=== PATIENT | male | born 1960 | race Caucasian/White ===

== ENCOUNTER 2019-07-13 11:37 | Inpatient (IN) ==
[2019-07-13 12:08] LABS: Basophils # 0.1 K/mcL (0.0-0.2); Basophils % 0.7 %; Eosinophils # 0.2 K/mcL (0.0-0.6); Eosinophils % 2.3 %; Hemoglobin 14.2 g/dL (12.9-16.9); Immature Granulocytes % 0.2 % (0-4); Lymphocytes # 1.5 K/mcL (0.6-4.6); Lymphocytes % 18.9 %; Mean Corpuscular Hemoglobin 31.3 pg (28.0-33.3); Mean Corpuscular Volume 94.7 fL (83.0-100.0); Mean Platelet Volume 10.4 fL (9.4-12.4); Monocytes # 0.6 K/mcL (0.0-1.3); Monocytes % 7.5 %; Neutrophils # 5.7 K/mcL (1.6-8.9); Platelet Count 214 K/mcL (140-400); Red Blood Count 4.54 M/mcL (4.19-5.50); Red Cell Distribution Width 13.8 % (11.5-14.5); Segmented Neutrophils % 70.4 %; White Blood Count 8.2 K/mcL (4.3-11.1)
[2019-07-13 12:27] LABS: BUN/Creatinine Ratio 16 (6-26); Blood Urea Nitrogen 17 mg/dL (8-23); Calcium 9.2 mg/dL (8.6-10.3); Carbon Dioxide 23 mEq/L (23-29); Chloride 110 mEq/L (98-107); Glucose 124 mg/dL (70-105); Osmolality,Calculated 295 (280-300); Potassium 4.2 mEq/L (3.5-5.1); Sodium 141 mEq/L (136-145); Troponin I < 0.03 ng/mL (< 0.04); eGFR For African Americans > 60 (> 60); eGFR For Non-African Americans > 60 (> 60)
[2019-07-13] MEDS ORDERED: Isovue-370 500 ML BOTTLE IVP ONE (12:53)
[2019-07-13] MEDS ORDERED: *HR* Metoprolol 5 MG/5 ML VIAL IVP STA (13:36)
[2019-07-13] MEDS ORDERED: Furosemide 20 MG/2 ML VIAL IVP ONE (13:37)
[2019-07-13] MEDS ORDERED: *HR* Promethazine 25 MG/ML VIAL IVP PRN (14:37)
[2019-07-13] MEDS ORDERED: Naloxone 0.4 MG/ML INJ IVP PRN (14:37)
[2019-07-13] MEDS ORDERED: Ondansetron ODT 4 MG TAB.RAPDIS SL PRN (14:37)
[2019-07-13] MEDS ORDERED: *HR* LORazepam 2 MG/ML VIAL IVP PRN (15:25)
[2019-07-13] MEDS ORDERED: *HR* Heparin 5,000 UNIT/ML VIAL IVP PRN ×2 (17:59)
[2019-07-13] MEDS ORDERED: *HR* Heparin 5,000 UNIT/ML VIAL IVP ONE (17:59)
[2019-07-13] MEDS ORDERED: Heparin 25,000 UNIT/250 ML D5W 25,000 UNIT/250 ML IV.SOLN IVC SCH (18:00)
[2019-07-13 18:32] LABS: Hematocrit 40.2 % (37.5-50.1); Hemoglobin 13.3 g/dL (12.9-16.9); Mean Corpuscular HGB Conc 33.1 g/dL (31.6-35.5); Mean Corpuscular Hemoglobin 31.1 pg (28.0-33.3); Mean Corpuscular Volume 93.9 fL (83.0-100.0); Mean Platelet Volume 10.1 fL (9.4-12.4); Platelet Count 204 K/mcL (140-400); Red Blood Count 4.28 M/mcL (4.19-5.50); Red Cell Distribution Width 13.8 % (11.5-14.5); White Blood Count 9.6 K/mcL (4.3-11.1)
[2019-07-13 18:46] LABS: Heparin anti-factor XA UFH 0.01 IU/mL (0.30-0.70); INR 1.2; Prothrombin Time 13.4 Seconds (9.4-12.1)
[2019-07-13] MEDS: Metoprolol 100 MG TABLET PO SCH ×2 (20:31→20:50)
[2019-07-13] MEDS: DilTIAZem 50 MG in 0.9 % Sodium Chloride 40 ML IVC SCH (20:55)
[2019-07-13] MEDS ORDERED: traZODone 50 MG TABLET PO SCH (21:00)
[2019-07-14] MEDS: DilTIAZem 50 MG in 0.9 % Sodium Chloride 40 ML IVC SCH (00:56)
[2019-07-14 02:05] LABS: Basophils # 0.1 K/mcL (0.0-0.2); Eosinophils # 0.3 K/mcL (0.0-0.6); Eosinophils % 2.8 %; Hematocrit 42.3 % (37.5-50.1); Hemoglobin 13.6 g/dL (12.9-16.9); Immature Granulocytes % 0.2 % (0-4); Lymphocytes # 2.3 K/mcL (0.6-4.6); Lymphocytes % 26.2 %; Mean Corpuscular HGB Conc 32.2 g/dL (31.6-35.5); Mean Corpuscular Hemoglobin 30.8 pg (28.0-33.3); Mean Corpuscular Volume 95.7 fL (83.0-100.0); Mean Platelet Volume 10.7 fL (9.4-12.4); Monocytes # 0.9 K/mcL (0.0-1.3); Neutrophils # 5.3 K/mcL (1.6-8.9); Platelet Count 225 K/mcL (140-400); Red Blood Count 4.42 M/mcL (4.19-5.50); Red Cell Distribution Width 13.8 % (11.5-14.5); Segmented Neutrophils % 59.8 %; White Blood Count 8.9 K/mcL (4.3-11.1)
[2019-07-14 02:28] LABS: BUN/Creatinine Ratio 15 (6-26); Blood Urea Nitrogen 17 mg/dL (8-23); Calcium 9.3 mg/dL (8.6-10.3); Carbon Dioxide 25 mEq/L (23-29); Chloride 109 mEq/L (98-107); Chol/HDL Ratio 3.9 (0-4.9); Glucose 107 mg/dL (70-105); Osmolality,Calculated 296 (280-300); Potassium 3.9 mEq/L (3.5-5.1); Sodium 142 mEq/L (136-145); eGFR For African Americans > 60 (> 60); eGFR For Non-African Americans > 60 (> 60)
[2019-07-14 02:34] LABS: Thyroid Stimulating Hormone 2.9 mcIU/mL (0.340-5.600)
[2019-07-14 09:08] LABS: Estimated Average Glucose 126 mg/dl
[2019-07-14] MEDS: Aspirin Enteric Coated 81 MG Tablet PO SCH (09:53)
[2019-07-14] MEDS: Metoprolol 100 MG TABLET PO SCH (09:54)
[2019-07-14] MEDS ORDERED: *HR* Rivaroxaban 10 MG TABLET PO SCH (10:00)
[2019-07-14] MEDS ORDERED: Furosemide 40 MG/4 ML VIAL IVP ONE (14:10)
[2019-07-14] MEDS: Metoprolol XL (24 HR) Succ 50 MG TAB.ER.24H PO SCH ×2 (14:45→20:24)
[2019-07-15] MEDS ORDERED: Regadenoson 0.4 MG/5 ML SYRINGE IVP ONE (06:04)
[2019-07-15 06:38] LABS: BUN/Creatinine Ratio 18 (6-26); Blood Urea Nitrogen 19 mg/dL (8-23); Calcium 9.2 mg/dL (8.6-10.3); Carbon Dioxide 27 mEq/L (23-29); Chloride 105 mEq/L (98-107); Glucose 107 mg/dL (70-105); Osmolality,Calculated 299 (280-300); Potassium 3.6 mEq/L (3.5-5.1); Sodium 143 mEq/L (136-145); eGFR For African Americans > 60 (> 60); eGFR For Non-African Americans > 60 (> 60)
[2019-07-15] MEDS ORDERED: Metoprolol XL (24 HR) Succ 50 MG TAB.ER.24H PO SCH (09:00)
[2019-07-15] MEDS ORDERED: Furosemide 40 MG TABLET PO SCH (09:00)
[2019-07-15] MEDS: Aspirin Enteric Coated 81 MG Tablet PO SCH (09:49)
[2019-07-15] MEDS: Metoprolol XL (24 HR) Succ 50 MG TAB.ER.24H PO SCH ×3 (09:49→22:10)
[2019-07-15] MEDS: Furosemide 40 MG/4 ML VIAL IVP SCH ×2 (09:49→17:53)
[2019-07-15] MEDS: Apixaban 5 MG TABLET PO SCH ×2 (09:49→22:10)
[2019-07-15 11:20] LABS: Magnesium 1.8 mg/dL (1.6-2.6)
[2019-07-16] MEDS: Aspirin Enteric Coated 81 MG Tablet PO SCH (10:18)
[2019-07-16] MEDS: Metoprolol XL (24 HR) Succ 50 MG TAB.ER.24H PO SCH ×3 (10:51→22:05)
[2019-07-16] MEDS: Furosemide 40 MG/4 ML VIAL IVP SCH (10:51)
[2019-07-16 11:41] LABS: BUN/Creatinine Ratio 19 (6-26); Blood Urea Nitrogen 23 mg/dL (8-23); Calcium 9.3 mg/dL (8.6-10.3); Carbon Dioxide 26 mEq/L (23-29); Chloride 104 mEq/L (98-107); Glucose 111 mg/dL (70-105); Osmolality,Calculated 294 (280-300); Potassium 3.8 mEq/L (3.5-5.1); Sodium 140 mEq/L (136-145); eGFR For African Americans > 60 (> 60); eGFR For Non-African Americans > 60 (> 60)
[2019-07-16] MEDS ORDERED: Apixaban 5 MG TABLET PO ONE (11:45)
[2019-07-16] MEDS ORDERED: *HR* Digoxin 0.5 MG/2 ML AMPUL IVP ONE (13:00)
[2019-07-16] MEDS: *HR* Digoxin 0.5 MG/2 ML AMPUL IVP SCH (20:39)
[2019-07-17] MEDS: *HR* Digoxin 0.5 MG/2 ML AMPUL IVP SCH ×3 (01:23→13:03)
[2019-07-17] MEDS: Aspirin Enteric Coated 81 MG Tablet PO SCH (08:24)
[2019-07-17] MEDS: Metoprolol XL (24 HR) Succ 50 MG TAB.ER.24H PO SCH ×2 (08:25→21:43)
[2019-07-17] MEDS: *HR* Enoxaparin 150 MG/ML SYRINGE SQ SCH ×2 (11:39→17:22)
[2019-07-17] MEDS ORDERED: cefTRIAXone 2,000 MG in Water for inj. (sterile) 20 ML IVP ONE (14:17)
[2019-07-17] MEDS: Furosemide 40 MG TABLET PO SCH (15:30)
[2019-07-18 06:02] LABS: BUN/Creatinine Ratio 18 (6-26); Blood Urea Nitrogen 19 mg/dL (8-23); Calcium 9.1 mg/dL (8.6-10.3); Carbon Dioxide 26 mEq/L (23-29); Chloride 105 mEq/L (98-107); Glucose 96 mg/dL (70-105); Osmolality,Calculated 294 (280-300); Sodium 141 mEq/L (136-145); eGFR For African Americans > 60 (> 60); eGFR For Non-African Americans > 60 (> 60)
[2019-07-18] MEDS ORDERED: *HR* Digoxin 0.25 MG TABLET PO SCH (09:00)
[2019-07-18] MEDS: Metoprolol XL (24 HR) Succ 50 MG TAB.ER.24H PO SCH (09:40)
[2019-07-18] MEDS: Aspirin Enteric Coated 81 MG Tablet PO SCH (09:41)
[2019-07-18] MEDS: Furosemide 40 MG TABLET PO SCH (10:41)
[2019-07-18] MEDS ORDERED: 0.9 % Sodium Chloride 1,000 ML ONE ×2 (13:30→13:47)
[2019-07-18] MEDS ORDERED: Heparin 1,000 UNITS/500 mL 500 ML ONE (13:30)
[2019-07-18] MEDS ORDERED: *HR* Heparin 10,000 UNIT/10 ML VIAL ONE (13:31)
[2019-07-18] MEDS ORDERED: Nitroglycerin 1,000 MCG/10 ML VIAL IV ONE (13:31)
[2019-07-18] MEDS ORDERED: Iopamidol 125 ML INFUS..BTL ONE (13:31)
[2019-07-18] MEDS ORDERED: *HR* Midazolam HCl 2 MG/2 ML VIAL ONE (13:46)
[2019-07-18] MEDS ORDERED: *HR* FentaNYL (PF) 100 MCG/2 ML VIAL ONE (13:47)
[2019-07-18] MEDS ORDERED: Verapamil 5 MG/2 ML VIAL ONE (13:55)
[2019-07-18 18:33] VITALS: BP 108/87
== END 2019-07-18 19:09 | disposition home or self-care (01) | DRG 286 ==
LOC: 2NENU 11:37 → EMEROOARM 11:37 → SUATTDRO 14:04 → 2NENU 14:55
PROVIDERS: ADMIT Internal Medicine; ATTEND Internal Medicine

== ENCOUNTER 2020-03-11 10:43 | Observation (INO) ==
[2020-03-11 11:15] LABS: Basophils # 0.1 K/mcL (0.0-0.2); Eosinophils # 0.3 K/mcL (0.0-0.6); Eosinophils % 3.2 %; Hematocrit 46.8 % (37.5-50.1); Hemoglobin 15.5 g/dL (12.9-16.9); Immature Granulocytes % 0.4 % (0-4); Lymphocytes # 2.5 K/mcL (0.6-4.6); Lymphocytes % 27.6 %; Mean Corpuscular HGB Conc 33.1 g/dL (31.6-35.5); Mean Corpuscular Hemoglobin 31.4 pg (28.0-33.3); Mean Corpuscular Volume 94.7 fL (83.0-100.0); Mean Platelet Volume 10.1 fL (9.4-12.4); Monocytes # 0.9 K/mcL (0.0-1.3); Monocytes % 9.8 %; Neutrophils # 5.3 K/mcL (1.6-8.9); Platelet Count 237 K/mcL (140-400); Red Blood Count 4.94 M/mcL (4.19-5.50); Red Cell Distribution Width 13.7 % (11.5-14.5); White Blood Count 9.1 K/mcL (4.3-11.1)
[2020-03-11 11:21] LABS: INR 1.2; Prothrombin Time 13.3 Seconds (9.4-12.1)
[2020-03-11 11:23] LABS: Activated Partial Thrombo Time 33.9 Seconds (26.0-36.0)
[2020-03-11 11:37] LABS: BUN/Creatinine Ratio 18 (6-26); Blood Urea Nitrogen 25 mg/dL (8-23); Calcium 9.5 mg/dL (8.6-10.3); Carbon Dioxide 26 mEq/L (23-29); Chloride 107 mEq/L (98-107); Glucose 120 mg/dL (70-105); Osmolality,Calculated 298 (280-300); Sodium 141 mEq/L (136-145); eGFR For African Americans > 60 (> 60); eGFR For Non-African Americans 53 (> 60)
[2020-03-11 11:39] LABS: Troponin I < 0.03 ng/mL (< 0.04)
[2020-03-11] MEDS ORDERED: Amiodarone Premix 150 MG/100 ML BAG IVPB ONE (11:41)
[2020-03-11] MEDS ORDERED: Naloxone 0.4 MG/ML INJ IVP PRN (12:04)
[2020-03-11] MEDS ORDERED: Ondansetron 4 MG/2 ML VIAL IVP PRN (12:04)
[2020-03-11] MEDS ORDERED: Amiodarone Premix 360 MG/200 ML BAG IVC ONE (12:07)
[2020-03-11] MEDS: *HR* Amiodarone 200 MG TABLET PO SCH (12:25)
[2020-03-11] MEDS: Amiodarone Premix 360 MG/200 ML BAG IVC SCH ×2 (16:00→18:46)
[2020-03-11] MEDS: Apixaban 5 MG TABLET PO SCH (20:06)
[2020-03-12 04:47] LABS: Basophils # 0.1 K/mcL (0.0-0.2); Basophils % 1.1 %; Eosinophils # 0.3 K/mcL (0.0-0.6); Eosinophils % 3.8 %; Hematocrit 43.1 % (37.5-50.1); Hemoglobin 14.1 g/dL (12.9-16.9); Immature Granulocytes % 0.2 % (0-4); Lymphocytes # 2.8 K/mcL (0.6-4.6); Lymphocytes % 34.8 %; Mean Corpuscular HGB Conc 32.7 g/dL (31.6-35.5); Mean Corpuscular Hemoglobin 31.1 pg (28.0-33.3); Mean Corpuscular Volume 95.1 fL (83.0-100.0); Mean Platelet Volume 10.1 fL (9.4-12.4); Monocytes # 0.7 K/mcL (0.0-1.3); Monocytes % 8.4 %; Neutrophils # 4.2 K/mcL (1.6-8.9); Platelet Count 195 K/mcL (140-400); Red Blood Count 4.53 M/mcL (4.19-5.50); Red Cell Distribution Width 13.8 % (11.5-14.5); Segmented Neutrophils % 51.7 %; White Blood Count 8.1 K/mcL (4.3-11.1)
[2020-03-12 05:11] LABS: BUN/Creatinine Ratio 19 (6-26); Blood Urea Nitrogen 24 mg/dL (8-23); Calcium 9.1 mg/dL (8.6-10.3); Carbon Dioxide 27 mEq/L (23-29); Chloride 105 mEq/L (98-107); Glucose 116 mg/dL (70-105); Osmolality,Calculated 295 (280-300); Phosphorous 3.6 mg/dL (2.7-4.5); Potassium 3.8 mEq/L (3.5-5.1); Sodium 140 mEq/L (136-145); eGFR For African Americans > 60 (> 60); eGFR For Non-African Americans 57 (> 60)
[2020-03-12] MEDS: Amiodarone Premix 360 MG/200 ML BAG IVC SCH (07:03)
[2020-03-12] MEDS: *HR* Amiodarone 200 MG TABLET PO SCH (08:13)
[2020-03-12] MEDS: Apixaban 5 MG TABLET PO SCH (08:15)
[2020-03-12] MEDS ORDERED: Cholecalciferol (D-3) 1,000 UNIT (25MCG) TABLET PO SCH (09:00)
[2020-03-12] MEDS ORDERED: Lactobacillus 1 EACH CAP.SPRINK PO SCH (09:00)
[2020-03-12] MEDS ORDERED: Furosemide 40 MG TABLET PO SCH (09:00)
[2020-03-12] MEDS ORDERED: Metoprolol XL (24 HR) Succ 50 MG TAB.ER.24H PO SCH (09:00)
[2020-03-12 15:11] VITALS: BP 111/90
[2020-03-12] MEDS ORDERED: *HR* Amiodarone 200 MG TABLET PO SCH ×2 (21:00)
[2020-03-20] MEDS ORDERED: *HR* Amiodarone 200 MG TABLET PO SCH (09:00)
== END 2020-03-12 16:05 | disposition home or self-care (01) ==
LOC: EMEROOARM 10:43 → 3NENU 10:43 → SUATTDRO 14:03 → 3NENU 15:40
PROVIDERS: ADMIT Student in an Organized Health Care Education/Training Program; ATTEND Student in an Organized Health Care Education/Training Program

== ENCOUNTER 2021-05-26 15:47 | Observation (INO) ==
[2021-05-26 16:56] LABS: Basophils # 0.1 K/mcL (0.0-0.2); Eosinophils # 0.2 K/mcL (0.0-0.6); Eosinophils % 2.1 %; Hemoglobin 14.4 g/dL (12.9-16.9); Immature Granulocytes % 0.2 % (0-4); Lymphocytes # 2.1 K/mcL (0.6-4.6); Lymphocytes % 22.8 %; Mean Corpuscular HGB Conc 33.5 g/dL (31.6-35.5); Mean Corpuscular Volume 95.6 fL (83.0-100.0); Mean Platelet Volume 10.2 fL (9.4-12.4); Monocytes # 0.9 K/mcL (0.0-1.3); Monocytes % 9.3 %; Neutrophils # 5.9 K/mcL (1.6-8.9); Platelet Count 195 K/mcL (140-400); Red Cell Distribution Width 13.6 % (11.5-14.5); Segmented Neutrophils % 64.6 %; White Blood Count 9.2 K/mcL (4.3-11.1)
[2021-05-26 17:03] LABS: INR 1.3; Prothrombin Time 14.7 Seconds (9.4-12.1)
[2021-05-26 17:21] LABS: Activated Partial Thrombo Time 32.3 Seconds (26.0-36.0)
[2021-05-26 17:25] LABS: BUN/Creatinine Ratio 18 (6-26); Blood Urea Nitrogen 19 mg/dL (8-23); Calcium 9.1 mg/dL (8.6-10.3); Carbon Dioxide 24 mEq/L (23-29); Chloride 110 mEq/L (98-107); Glucose 124 mg/dL (70-105); Osmolality,Calculated 298 (280-300); Potassium 3.8 mEq/L (3.5-5.1); Sodium 142 mEq/L (136-145); Troponin I < 0.03 ng/mL (< 0.04); eGFR For African Americans > 60 (> 60); eGFR For Non-African Americans > 60 (> 60)
[2021-05-26 17:49] LABS: Thyroid Stimulating Hormone 3.717 mcIU/mL (0.340-5.600)
[2021-05-26] MEDS ORDERED: *HR* Metoprolol 5 MG/5 ML VIAL IVP ONE (17:50)
[2021-05-26] MEDS ORDERED: Apixaban 5 MG TABLET PO ONE (19:51)
[2021-05-26] MEDS ORDERED: Naloxone 0.4 MG/ML INJ IVP PRN (19:55)
[2021-05-26] MEDS ORDERED: Furosemide 20 MG/2 ML VIAL IVP ONE (19:55)
[2021-05-26] MEDS ORDERED: Melatonin 3 MG TABLET PO PRN (19:55)
[2021-05-27] MEDS ORDERED: Furosemide 20 MG TABLET PO SCH (09:00)
[2021-05-27] MEDS ORDERED: Apixaban 5 MG TABLET PO SCH (09:00)
[2021-05-27] MEDS ORDERED: Metoprolol XL (24 HR) Succ 50 MG TAB.ER.24H PO SCH ×2 (09:00→18:00)
[2021-05-27] MEDS ORDERED: Cholecalciferol (D-3) 1,000 UNIT (25MCG) TABLET PO SCH (09:00)
[2021-05-27 11:44] VITALS: BP 113/95
== END 2021-05-27 12:50 | disposition home or self-care (01) ==
LOC: CDU 15:47 → EMEROOARM 15:47 → CDU 20:33
PROVIDERS: ADMIT Internal Medicine; ATTEND Internal Medicine

== ENCOUNTER 2021-09-16 13:00 | Inpatient (IN) ==
[2021-09-16 14:31] LABS: Basophils # 0.1 K/mcL (0.0-0.2); Eosinophils # 0.2 K/mcL (0.0-0.6); Eosinophils % 2.8 %; Hematocrit 48.5 % (37.5-50.1); Immature Granulocytes % 0.2 % (0-4); Lymphocytes % 24.1 %; Mean Corpuscular Hemoglobin 31.7 pg (28.0-33.3); Mean Platelet Volume 9.8 fL (9.4-12.4); Monocytes # 0.6 K/mcL (0.0-1.3); Monocytes % 7.6 %; Neutrophils # 5.3 K/mcL (1.6-8.9); Platelet Count 233 K/mcL (140-400); Red Blood Count 5.05 M/mcL (4.19-5.50); Red Cell Distribution Width 13.7 % (11.5-14.5); Segmented Neutrophils % 64.3 %; White Blood Count 8.2 K/mcL (4.3-11.1)
[2021-09-16 14:41] LABS: INR 1.3; Prothrombin Time 14.4 Seconds (9.4-12.1)
[2021-09-16 14:43] LABS: Activated Partial Thrombo Time 38.9 Seconds (26.0-36.0)
[2021-09-16 15:41] LABS: BUN/Creatinine Ratio 14 (6-26); Blood Urea Nitrogen 18 mg/dL (8-23); Calcium 9.6 mg/dL (8.6-10.3); Carbon Dioxide 22 mEq/L (23-29); Chloride 109 mEq/L (98-107); Glucose 114 mg/dL (70-105); Osmolality,Calculated 297 (280-300); Sodium 142 mEq/L (136-145); Thyroid Stimulating Hormone 3.553 mcIU/mL (0.340-5.600); Troponin I < 0.03 ng/mL (< 0.04); eGFR For African Americans > 60 (> 60); eGFR For Non-African Americans 59 (> 60)
[2021-09-16] MEDS ORDERED: Naloxone 0.4 MG/ML INJ IVP PRN (17:19)
[2021-09-16] MEDS ORDERED: Ondansetron 4 MG/2 ML VIAL IVP PRN (17:19)
[2021-09-16] MEDS ORDERED: *HR* OxyCODONE/APAP 5/325 TABLET PO PRN (17:23)
[2021-09-16] MEDS: Apixaban 5 MG TABLET PO SCH (20:43)
[2021-09-16] MEDS: Metoprolol XL (24 HR) Succ 50 MG TAB.ER.24H PO SCH (20:43)
[2021-09-17] MEDS: Metoprolol XL (24 HR) Succ 50 MG TAB.ER.24H PO SCH ×2 (09:33→20:30)
[2021-09-17] MEDS: Apixaban 5 MG TABLET PO SCH ×2 (09:33→20:30)
[2021-09-17] MEDS: Multivit/Ca/Min/Fe/FA 1 TAB TABLET PO SCH (09:34)
[2021-09-17] MEDS: Cholecalciferol (D-3) 1,000 UNIT (25MCG) TABLET PO SCH (09:34)
[2021-09-17] MEDS: Lactobacillus 1 EACH CAP.SPRINK PO SCH (09:34)
[2021-09-17] MEDS: Furosemide 20 MG TABLET PO SCH (09:34)
[2021-09-17] MEDS ORDERED: Perflutren Lipid Microsphere 1.3 ML in 0.9 % Sodium Chloride 8.7 ML IVP PRN (10:24)
[2021-09-17 10:43] LABS: Basophils # 0.1 K/mcL (0.0-0.2); Basophils % 1.3 %; Eosinophils # 0.3 K/mcL (0.0-0.6); Eosinophils % 4.2 %; Hemoglobin 14.8 g/dL (12.9-16.9); Immature Granulocytes % 0.1 % (0-4); Lymphocytes # 1.7 K/mcL (0.6-4.6); Lymphocytes % 24.5 %; Mean Corpuscular HGB Conc 33.6 g/dL (31.6-35.5); Mean Platelet Volume 9.8 fL (9.4-12.4); Monocytes # 0.7 K/mcL (0.0-1.3); Monocytes % 10.1 %; Neutrophils # 4.1 K/mcL (1.6-8.9); Platelet Count 194 K/mcL (140-400); Red Blood Count 4.63 M/mcL (4.19-5.50); Red Cell Distribution Width 13.7 % (11.5-14.5); Segmented Neutrophils % 59.8 %; White Blood Count 6.9 K/mcL (4.3-11.1)
[2021-09-17 11:26] LABS: Alanine Aminotransferase 14 Units/L (7-52); Albumin 3.9 g/dL (3.5-5.7); Albumin/Globulin Ratio 1.6 (1.1-2.2); Alkaline Phosphatase 52 Units/L (34-104); Aspartate Amino Transferase 15 Units/L (13-39); BUN/Creatinine Ratio 14 (6-26); Bilirubin,Total 0.7 mg/dL (0.3-1.0); Blood Urea Nitrogen 17 mg/dL (8-23); Calcium 9.1 mg/dL (8.6-10.3); Carbon Dioxide 24 mEq/L (23-29); Chloride 110 mEq/L (98-107); Globulin 2.5 g/dL (2.4-3.5); Glucose 104 mg/dL (70-105); Osmolality,Calculated 296 (280-300); Potassium 3.9 mEq/L (3.5-5.1); Sodium 142 mEq/L (136-145); Total Protein 6.4 g/dL (6.4-8.9); eGFR For African Americans > 60 (> 60); eGFR For Non-African Americans > 60 (> 60)
[2021-09-18] MEDS: Metoprolol XL (24 HR) Succ 50 MG TAB.ER.24H PO SCH ×2 (08:44→20:29)
[2021-09-18] MEDS: Cholecalciferol (D-3) 1,000 UNIT (25MCG) TABLET PO SCH (08:44)
[2021-09-18] MEDS: Lactobacillus 1 EACH CAP.SPRINK PO SCH (08:44)
[2021-09-18] MEDS: Furosemide 20 MG TABLET PO SCH (08:44)
[2021-09-18] MEDS: Multivit/Ca/Min/Fe/FA 1 TAB TABLET PO SCH (08:44)
[2021-09-18] MEDS: Apixaban 5 MG TABLET PO SCH ×2 (08:44→20:29)
[2021-09-18 10:09] LABS: BUN/Creatinine Ratio 17 (6-26); Blood Urea Nitrogen 18 mg/dL (8-23); Calcium 9.5 mg/dL (8.6-10.3); Carbon Dioxide 27 mEq/L (23-29); Chloride 107 mEq/L (98-107); Glucose 113 mg/dL (70-105); Magnesium 1.8 mg/dL (1.6-2.6); Osmolality,Calculated 295 (280-300); Potassium 3.8 mEq/L (3.5-5.1); Sodium 141 mEq/L (136-145); eGFR For African Americans > 60 (> 60); eGFR For Non-African Americans > 60 (> 60)
[2021-09-19] MEDS: Apixaban 5 MG TABLET PO SCH ×2 (08:32→20:33)
[2021-09-19] MEDS: Lactobacillus 1 EACH CAP.SPRINK PO SCH (08:32)
[2021-09-19] MEDS: Multivit/Ca/Min/Fe/FA 1 TAB TABLET PO SCH (08:32)
[2021-09-19] MEDS: Furosemide 20 MG TABLET PO SCH (08:32)
[2021-09-19] MEDS: Cholecalciferol (D-3) 1,000 UNIT (25MCG) TABLET PO SCH (08:33)
[2021-09-19] MEDS: Metoprolol XL (24 HR) Succ 50 MG TAB.ER.24H PO SCH (08:39)
[2021-09-19] MEDS ORDERED: 0.9 % Sodium Chloride 1,000 ML ONE (09:48)
[2021-09-19] MEDS ORDERED: *HR* FentaNYL (PF) 250 MCG/5 ML VIAL ONE (09:52)
[2021-09-19] MEDS ORDERED: *HR* Midazolam HCl 5 MG/5 ML VIAL IVP ONE ×4 (09:52→23:52)
[2021-09-19] MEDS ORDERED: *HR* FentaNYL (PF) 100 MCG/2 ML VIAL ONE (22:01)
[2021-09-19 22:11] LABS: INR 1.2; Prothrombin Time 12.9 Seconds (9.4-12.1)
[2021-09-19 22:19] LABS: Alanine Aminotransferase 82 Units/L (7-52); Albumin/Globulin Ratio 1.5 (1.1-2.2); Alkaline Phosphatase 54 Units/L (34-104); Aspartate Amino Transferase 67 Units/L (13-39); BUN/Creatinine Ratio 14 (6-26); Bilirubin,Direct 0.1 mg/dL (0.0-0.2); Bilirubin,Indirect 0.3 mg/dL (0.0-1.0); Bilirubin,Total 0.4 mg/dL (0.3-1.0); Blood Urea Nitrogen 20 mg/dL (8-23); Calcium 8.7 mg/dL (8.6-10.3); Carbon Dioxide 17 mEq/L (23-29); Chloride 107 mEq/L (98-107); Globulin 2.7 g/dL (2.4-3.5); Glucose 185 mg/dL (70-105); Osmolality,Calculated 299 (280-300); Potassium 3.5 mEq/L (3.5-5.1); Sodium 141 mEq/L (136-145); Total Protein 6.7 g/dL (6.4-8.9); eGFR For African Americans 59 (> 60); eGFR For Non-African Americans 49 (> 60)
[2021-09-19 22:20] LABS: Troponin I < 0.03 ng/mL (< 0.04)
[2021-09-19 22:38] LABS: Basophils # 0.1 K/mcL (0.0-0.2); Basophils % 0.9 %; Eosinophils # 0.3 K/mcL (0.0-0.6); Eosinophils % 2.4 %; Hematocrit 45.9 % (37.5-50.1); Hemoglobin 14.9 g/dL (12.9-16.9); Lymphocytes % 29.1 %; Mean Corpuscular HGB Conc 32.5 g/dL (31.6-35.5); Mean Corpuscular Volume 98.5 fL (83.0-100.0); Mean Platelet Volume 10.3 fL (9.4-12.4); Monocytes # 1.1 K/mcL (0.0-1.3); Monocytes % 7.8 %; Platelet Count 221 K/mcL (140-400); Red Blood Count 4.66 M/mcL (4.19-5.50); Red Cell Distribution Width 13.8 % (11.5-14.5); Segmented Neutrophils % 58.8 %
[2021-09-19 22:43] LABS: White Blood Count 13.6 K/mcL (4.3-11.1)
[2021-09-20] MEDS: Midazolam HCl 50 MG/100 ML IV.SOLN IVC SCH ×7 (00:07→20:15)
[2021-09-20] MEDS: Norepinephrine 4 MG/254 ML IV.SOLN IVC SCH ×3 (00:09→10:50)
[2021-09-20] MEDS ORDERED: Artificial Tears SOLN 15 ML BOTTLE BOTH EYES PRN (00:17)
[2021-09-20] MEDS: FentaNYL (PF) 1,000 MCG/100 ML IV.SOLN IVC SCH ×4 (00:26→19:46)
[2021-09-20 00:33] LABS: ABG Base Excess -4 mEq/L (-2 to 3); ABG HCO3 22 mEq/L (21-27); ABG Oxygen Saturation 91 % (95-98); ABG PCO2 41 mmHg (35-45); ABG PH 7.34 pH Units (7.32-7.45); ABG PO2 65 mmHg (85-104); ABG TCO2 24 mEq/L (20-26); Blood Gas VT 500 cc
[2021-09-20] MEDS ORDERED: *HR* Midazolam HCl 5 MG/5 ML VIAL IVP ONE ×2 (02:52→03:56)
[2021-09-20 04:07] LABS: VBG Ionized Calcium 1.15 mmol/L (1.15-1.35)
[2021-09-20] MEDS: Artificial Tears SOLN 15 ML BOTTLE BOTH EYES SCH ×6 (04:13→23:45)
[2021-09-20 04:21] LABS: Albumin 3.9 g/dL (3.5-5.7); Albumin/Globulin Ratio 1.5 (1.1-2.2); Bilirubin,Direct 0.1 mg/dL (0.0-0.2); Bilirubin,Indirect 0.4 mg/dL (0.0-1.0); Bilirubin,Total 0.5 mg/dL (0.3-1.0); Calcium 8.6 mg/dL (8.6-10.3); Globulin 2.6 g/dL (2.4-3.5); Magnesium 2.1 mg/dL (1.6-2.6); Potassium 3.6 mEq/L (3.5-5.1); Total Protein 6.5 g/dL (6.4-8.9)
[2021-09-20 04:32] LABS: Basophils % 0.2 %; Eosinophils % 0.1 %; Hemoglobin 14.2 g/dL (12.9-16.9); Immature Granulocytes % 0.4 % (0-4); Lymphocytes # 0.7 K/mcL (0.6-4.6); Lymphocytes % 5.3 %; Mean Corpuscular HGB Conc 32.3 g/dL (31.6-35.5); Mean Corpuscular Hemoglobin 31.7 pg (28.0-33.3); Mean Corpuscular Volume 98.2 fL (83.0-100.0); Mean Platelet Volume 10.3 fL (9.4-12.4); Monocytes # 1.2 K/mcL (0.0-1.3); Monocytes % 8.9 %; Neutrophils # 11.7 K/mcL (1.6-8.9); Platelet Count 183 K/mcL (140-400); Red Blood Count 4.48 M/mcL (4.19-5.50); Red Cell Distribution Width 13.6 % (11.5-14.5); Segmented Neutrophils % 85.1 %; White Blood Count 13.8 K/mcL (4.3-11.1)
[2021-09-20 04:50] LABS: ABG Base Excess -3 mEq/L (-2 to 3); ABG HCO3 23 mEq/L (21-27); ABG Oxygen Saturation 94 % (95-98); ABG PCO2 46 mmHg (35-45); ABG PH 7.31 pH Units (7.32-7.45); ABG PO2 78 mmHg (85-104); ABG TCO2 25 mEq/L (20-26); Blood Gas VT 500 cc
[2021-09-20] MEDS: Chlorhexidine Rinse 15 ML MOUTHWASH MM SCH ×2 (08:17→20:15)
[2021-09-20] MEDS: Pantoprazole 40 MG VIAL IVP SCH (08:17)
[2021-09-20] MEDS: Lactobacillus 1 EACH CAP.SPRINK PO SCH (08:17)
[2021-09-20] MEDS: Cholecalciferol (D-3) 1,000 UNIT (25MCG) TABLET PO SCH (08:18)
[2021-09-20] MEDS: Multivit/Ca/Min/Fe/FA 1 TAB TABLET PO SCH (08:18)
[2021-09-20] MEDS ORDERED: Metoprolol XL (24 HR) Succ 50 MG TAB.ER.24H PO SCH (09:00)
[2021-09-20] MEDS ORDERED: Ipratropium/Albuterol Neb 3 ML IH PRN (11:02)
[2021-09-20 22:20] LABS: INR 1.2; Prothrombin Time 13.7 Seconds (9.4-12.1)
[2021-09-20 22:22] LABS: Activated Partial Thrombo Time 33.2 Seconds (26.0-36.0)
[2021-09-20 22:23] LABS: Calcium 8.5 mg/dL (8.6-10.3); Magnesium 1.9 mg/dL (1.6-2.6)
[2021-09-21] MEDS: Midazolam HCl 50 MG/100 ML IV.SOLN IVC SCH ×7 (00:26→23:52)
[2021-09-21] MEDS: Norepinephrine 4 MG/254 ML IV.SOLN IVC SCH (00:49)
[2021-09-21] MEDS: FentaNYL (PF) 1,000 MCG/100 ML IV.SOLN IVC SCH ×4 (03:03→23:00)
[2021-09-21] MEDS: Artificial Tears SOLN 15 ML BOTTLE BOTH EYES SCH ×6 (03:03→23:45)
[2021-09-21 04:28] LABS: ABG Base Excess -2 mEq/L (-2 to 3); ABG HCO3 24 mEq/L (21-27); ABG Oxygen Saturation 85 % (95-98); ABG PCO2 44 mmHg (35-45); ABG PH 7.35 pH Units (7.32-7.45); ABG PO2 53 mmHg (85-104); ABG TCO2 25 mEq/L (20-26); Blood Gas VT 500 cc
[2021-09-21 04:54] LABS: Hematocrit 42.2 % (37.5-50.1); Hemoglobin 13.7 g/dL (12.9-16.9); Mean Corpuscular HGB Conc 32.5 g/dL (31.6-35.5); Mean Corpuscular Hemoglobin 31.9 pg (28.0-33.3); Mean Corpuscular Volume 98.1 fL (83.0-100.0); Mean Platelet Volume 10.1 fL (9.4-12.4); Platelet Count 170 K/mcL (140-400)
[2021-09-21 05:10] LABS: Calcium 8.7 mg/dL (8.6-10.3); Magnesium 2.4 mg/dL (1.6-2.6); Potassium 3.7 mEq/L (3.5-5.1)
[2021-09-21] MEDS: Chlorhexidine Rinse 15 ML MOUTHWASH MM SCH ×2 (07:42→19:56)
[2021-09-21] MEDS: Multivit/Ca/Min/Fe/FA 1 TAB TABLET PO SCH (07:42)
[2021-09-21] MEDS: Potassium Chloride 40 MEQ/200 ML BAG IVPB PRN (07:42)
[2021-09-21] MEDS: Lactobacillus 1 EACH CAP.SPRINK PO SCH (07:42)
[2021-09-21] MEDS: Pantoprazole 40 MG VIAL IVP SCH (07:42)
[2021-09-21] MEDS: Cholecalciferol (D-3) 1,000 UNIT (25MCG) TABLET PO SCH (07:42)
[2021-09-21] MEDS ORDERED: Furosemide 40 MG/4 ML VIAL ONE (11:55)
[2021-09-21] MEDS ORDERED: Furosemide 40 MG/4 ML VIAL IVP ONE (11:58)
[2021-09-21] MEDS: Ipratropium/Albuterol Neb 3 ML IH SCH ×2 (16:19→20:24)
[2021-09-21] MEDS ORDERED: *HR* Heparin 5,000 UNIT/ML VIAL IVP PRN ×2 (19:59)
[2021-09-21] MEDS ORDERED: *HR* Heparin 5,000 UNIT/ML VIAL IVP ONE (19:59)
[2021-09-21] MEDS: Heparin 25,000UNIT/250ML 1/2NS 25,000 UNIT/250 ML IV.SOLN IVC SCH (20:53)
[2021-09-22] MEDS: Midazolam HCl 50 MG/100 ML IV.SOLN IVC SCH ×3 (03:45→12:12)
[2021-09-22] MEDS: Norepinephrine 4 MG/254 ML IV.SOLN IVC SCH (03:46)
[2021-09-22] MEDS: Artificial Tears SOLN 15 ML BOTTLE BOTH EYES SCH ×6 (03:46→23:47)
[2021-09-22 03:55] LABS: Hemoglobin 12.8 g/dL (12.9-16.9); Mean Corpuscular Hemoglobin 32.1 pg (28.0-33.3); Mean Corpuscular Volume 100.3 fL (83.0-100.0); Mean Platelet Volume 10.2 fL (9.4-12.4); Platelet Count 169 K/mcL (140-400); Red Blood Count 3.99 M/mcL (4.19-5.50); Red Cell Distribution Width 14.2 % (11.5-14.5); White Blood Count 12.1 K/mcL (4.3-11.1)
[2021-09-22] MEDS: Ipratropium/Albuterol Neb 3 ML IH SCH ×4 (03:56→19:23)
[2021-09-22 04:08] LABS: Calcium 8.6 mg/dL (8.6-10.3); Magnesium 2.2 mg/dL (1.6-2.6); Potassium 4.2 mEq/L (3.5-5.1)
[2021-09-22 04:09] LABS: Heparin anti-factor XA UFH 0.09 IU/mL (0.30-0.70); INR 1.3; Prothrombin Time 14.8 Seconds (9.4-12.1)
[2021-09-22 04:26] LABS: ABG Base Excess -1 mEq/L (-2 to 3); ABG HCO3 26 mEq/L (21-27); ABG Oxygen Saturation 94 % (95-98); ABG PCO2 48 mmHg (35-45); ABG PH 7.34 pH Units (7.32-7.45); ABG PO2 76 mmHg (85-104); ABG TCO2 27 mEq/L (20-26); Blood Gas VT 500 cc
[2021-09-22] MEDS ORDERED: *HR* Metoprolol 5 MG/5 ML VIAL IVP ONE ×2 (04:34→05:14)
[2021-09-22] MEDS: Heparin 25,000UNIT/250ML 1/2NS 25,000 UNIT/250 ML IV.SOLN IVC SCH ×2 (04:49→17:36)
[2021-09-22] MEDS: FentaNYL (PF) 1,000 MCG/100 ML IV.SOLN IVC SCH ×2 (05:33→12:12)
[2021-09-22] MEDS: Chlorhexidine Rinse 15 ML MOUTHWASH MM SCH ×2 (07:42→20:41)
[2021-09-22] MEDS: Lactobacillus 1 EACH CAP.SPRINK PO SCH (07:42)
[2021-09-22] MEDS: Cholecalciferol (D-3) 1,000 UNIT (25MCG) TABLET PO SCH (07:42)
[2021-09-22] MEDS: Pantoprazole 40 MG VIAL IVP SCH (07:43)
[2021-09-22] MEDS: Multivit/Ca/Min/Fe/FA 1 TAB TABLET PO SCH (07:43)
[2021-09-22] MEDS: Furosemide 40 MG/4 ML VIAL IVP SCH (07:43)
[2021-09-22] MEDS ORDERED: Amiodarone Premix 150 MG/100 ML BAG IVPB ONE ×2 (08:40→08:42)
[2021-09-22] MEDS ORDERED: Amiodarone Premix 360 MG/200 ML BAG IVC ONE (08:40)
[2021-09-22] MEDS: Dexmedetomidine HCl 400 MCG/100 ML MLS IVC SCH ×4 (08:59→23:05)
[2021-09-22 10:00] LABS: Albumin 3.4 g/dL (3.5-5.7); Albumin/Globulin Ratio 1.4 (1.1-2.2); Bilirubin,Direct 0.4 mg/dL (0.0-0.2); Bilirubin,Total 1.4 mg/dL (0.3-1.0); Globulin 2.5 g/dL (2.4-3.5); Total Protein 5.9 g/dL (6.4-8.9)
[2021-09-22] MEDS: Amiodarone Premix 360 MG/200 ML BAG IVC SCH (14:56)
[2021-09-22] MEDS: Docusate Oral Soln 100 MG/10 ML UDC GTUBE SCH (20:41)
[2021-09-23] MEDS: cefTRIAXone 1,000 MG in 0.9 % Sodium Chloride Mini Bag 100 ML IVPB SCH ×3 (02:07→17:19)
[2021-09-23] MEDS: Dexmedetomidine HCl 400 MCG/100 ML MLS IVC SCH ×8 (02:25→21:43)
[2021-09-23] MEDS: Artificial Tears SOLN 15 ML BOTTLE BOTH EYES SCH ×6 (03:11→23:03)
[2021-09-23] MEDS: Amiodarone Premix 360 MG/200 ML BAG IVC SCH ×2 (03:11→16:44)
[2021-09-23 03:46] LABS: Hematocrit 39.9 % (37.5-50.1); Hemoglobin 12.8 g/dL (12.9-16.9); Mean Corpuscular HGB Conc 32.1 g/dL (31.6-35.5); Mean Corpuscular Hemoglobin 31.8 pg (28.0-33.3); Mean Platelet Volume 10.5 fL (9.4-12.4); Platelet Count 173 K/mcL (140-400); Red Blood Count 4.03 M/mcL (4.19-5.50); Red Cell Distribution Width 13.6 % (11.5-14.5); White Blood Count 9.3 K/mcL (4.3-11.1)
[2021-09-23 03:54] LABS: Calcium 8.9 mg/dL (8.6-10.3); Potassium 4.5 mEq/L (3.5-5.1)
[2021-09-23] MEDS: Ipratropium/Albuterol Neb 3 ML IH SCH ×4 (04:21→19:28)
[2021-09-23 04:34] LABS: ABG Base Excess 0 mEq/L (-2 to 3); ABG HCO3 25 mEq/L (21-27); ABG Oxygen Saturation 93 % (95-98); ABG PCO2 40 mmHg (35-45); ABG PO2 67 mmHg (85-104); ABG TCO2 26 mEq/L (20-26); Blood Gas Modality ASSIST CONTROL; Blood Gas VT 500 cc
[2021-09-23] MEDS: FentaNYL (PF) 1,000 MCG/100 ML IV.SOLN IVC SCH ×3 (05:01→20:05)
[2021-09-23] MEDS: Midazolam HCl 50 MG/100 ML IV.SOLN IVC SCH ×3 (05:01→21:08)
[2021-09-23] MEDS: Heparin 25,000UNIT/250ML 1/2NS 25,000 UNIT/250 ML IV.SOLN IVC SCH ×2 (05:06→19:16)
[2021-09-23] MEDS: Docusate Oral Soln 100 MG/10 ML UDC GTUBE SCH ×2 (08:08→19:28)
[2021-09-23] MEDS: Chlorhexidine Rinse 15 ML MOUTHWASH MM SCH ×2 (08:08→19:29)
[2021-09-23] MEDS: Lactobacillus 1 EACH CAP.SPRINK PO SCH (08:09)
[2021-09-23] MEDS: Furosemide 40 MG/4 ML VIAL IVP SCH ×2 (08:09→20:58)
[2021-09-23] MEDS: Cholecalciferol (D-3) 1,000 UNIT (25MCG) TABLET PO SCH (08:10)
[2021-09-23] MEDS: Multivit/Ca/Min/Fe/FA 1 TAB TABLET PO SCH (08:10)
[2021-09-23] MEDS: Pantoprazole 40 MG VIAL IVP SCH (08:10)
[2021-09-23] MEDS ORDERED: levoFLOXacin 750 MG/150 ML 750 MG/150 ML BAG IVPB SCH (09:00)
[2021-09-23] MEDS: Metoprolol XL (24 HR) Succ 25 MG TAB.ER.24H PO SCH ×2 (10:50→20:46)
[2021-09-23] MEDS ORDERED: Lidocaine -MPF 1% 5 ML AMPUL INFILT ONE (13:11)
[2021-09-23] MEDS ORDERED: Furosemide 40 MG/4 ML VIAL IVP SCH (15:00)
[2021-09-23] MEDS: Doxycycline 100 MG in 0.9 % Sodium Chloride Mini Bag 100 ML IVPB SCH (17:10)
[2021-09-23] MEDS: Norepinephrine 4 MG/254 ML IV.SOLN IVC SCH ×3 (19:25→23:03)
[2021-09-24] MEDS: Midazolam HCl 50 MG/100 ML IV.SOLN IVC SCH ×5 (00:13→23:33)
[2021-09-24] MEDS: Dexmedetomidine HCl 400 MCG/100 ML MLS IVC SCH ×9 (00:34→23:36)
[2021-09-24] MEDS: FentaNYL (PF) 1,000 MCG/100 ML IV.SOLN IVC SCH ×5 (01:43→22:52)
[2021-09-24] MEDS: cefTRIAXone 1,000 MG in 0.9 % Sodium Chloride Mini Bag 100 ML IVPB SCH ×2 (02:05→08:57)
[2021-09-24] MEDS: Artificial Tears SOLN 15 ML BOTTLE BOTH EYES SCH ×2 (03:11→07:32)
[2021-09-24 03:56] LABS: VBG Ionized Calcium 1.19 mmol/L (1.15-1.35)
[2021-09-24 04:00] LABS: Basophils % 0.4 %; Eosinophils # 0.2 K/mcL (0.0-0.6); Eosinophils % 2.6 %; Hematocrit 38.6 % (37.5-50.1); Hemoglobin 12.8 g/dL (12.9-16.9); Immature Granulocytes % 0.3 % (0-4); Lymphocytes # 1.1 K/mcL (0.6-4.6); Lymphocytes % 11.6 %; Mean Corpuscular HGB Conc 33.2 g/dL (31.6-35.5); Mean Corpuscular Hemoglobin 32.6 pg (28.0-33.3); Mean Corpuscular Volume 98.2 fL (83.0-100.0); Mean Platelet Volume 10.7 fL (9.4-12.4); Monocytes % 10.8 %; Platelet Count 182 K/mcL (140-400); Red Blood Count 3.93 M/mcL (4.19-5.50); Red Cell Distribution Width 13.4 % (11.5-14.5); Segmented Neutrophils % 74.3 %; White Blood Count 9.4 K/mcL (4.3-11.1)
[2021-09-24] MEDS: Ipratropium/Albuterol Neb 3 ML IH SCH ×4 (04:04→19:49)
[2021-09-24 04:18] LABS: BUN/Creatinine Ratio 17 (6-26); Blood Urea Nitrogen 24 mg/dL (8-23); Calcium 8.5 mg/dL (8.6-10.3); Carbon Dioxide 27 mEq/L (23-29); Chloride 104 mEq/L (98-107); Glucose 126 mg/dL (70-105); Magnesium 1.6 mg/dL (1.6-2.6); Osmolality,Calculated 296 (280-300); Phosphorous 5.3 mg/dL (2.7-4.5); Potassium 3.8 mEq/L (3.5-5.1); Sodium 140 mEq/L (136-145); eGFR For African Americans > 60 (> 60); eGFR For Non-African Americans 51 (> 60)
[2021-09-24 04:21] LABS: ABG Base Excess 0 mEq/L (-2 to 3); ABG HCO3 25 mEq/L (21-27); ABG Oxygen Saturation 93 % (95-98); ABG PCO2 40 mmHg (35-45); ABG PH 7.41 pH Units (7.32-7.45); ABG PO2 65 mmHg (85-104); ABG TCO2 26 mEq/L (20-26); Blood Gas Modality AF; Blood Gas VT 500 cc
[2021-09-24] MEDS: Doxycycline 100 MG in 0.9 % Sodium Chloride Mini Bag 100 ML IVPB SCH (05:13)
[2021-09-24] MEDS: Potassium Chloride 40 MEQ/200 ML BAG IVPB PRN (05:21)
[2021-09-24] MEDS: Amiodarone Premix 360 MG/200 ML BAG IVC SCH ×2 (06:05→20:34)
[2021-09-24] MEDS: Heparin 25,000UNIT/250ML 1/2NS 25,000 UNIT/250 ML IV.SOLN IVC SCH ×2 (07:35→20:34)
[2021-09-24] MEDS: Lactobacillus 1 EACH CAP.SPRINK PO SCH (07:42)
[2021-09-24] MEDS: Docusate Oral Soln 100 MG/10 ML UDC GTUBE SCH ×2 (07:42→19:42)
[2021-09-24] MEDS: Pantoprazole 40 MG VIAL IVP SCH (07:42)
[2021-09-24] MEDS: Chlorhexidine Rinse 15 ML MOUTHWASH MM SCH ×2 (07:42→19:42)
[2021-09-24] MEDS: Cholecalciferol (D-3) 1,000 UNIT (25MCG) TABLET PO SCH (07:43)
[2021-09-24] MEDS: Metoprolol XL (24 HR) Succ 25 MG TAB.ER.24H PO SCH ×2 (07:43→19:42)
[2021-09-24] MEDS: Multivit/Ca/Min/Fe/FA 1 TAB TABLET PO SCH (07:43)
[2021-09-24] MEDS: Lacri-Lube 3.5 GM TUBE BOTH EYES SCH ×2 (08:57→19:43)
[2021-09-24] MEDS: Furosemide 40 MG/4 ML VIAL IVP SCH ×2 (09:57→20:47)
[2021-09-24] MEDS: *HR* Amiodarone 200 MG TABLET PO SCH ×2 (13:28→19:42)
[2021-09-24] MEDS: Norepinephrine 4 MG/254 ML IV.SOLN IVC SCH ×2 (19:11→23:33)
[2021-09-25] MEDS: Dexmedetomidine HCl 400 MCG/100 ML MLS IVC SCH ×8 (02:25→22:15)
[2021-09-25] MEDS: Midazolam HCl 50 MG/100 ML IV.SOLN IVC SCH ×5 (03:00→23:40)
[2021-09-25] MEDS: FentaNYL (PF) 1,000 MCG/100 ML IV.SOLN IVC SCH ×5 (03:00→23:39)
[2021-09-25] MEDS: Ipratropium/Albuterol Neb 3 ML IH SCH ×4 (04:09→19:47)
[2021-09-25 04:31] LABS: ABG Base Excess 3 mEq/L (-2 to 3); ABG HCO3 29 mEq/L (21-27); ABG Oxygen Saturation 55 % (95-98); ABG PCO2 46 mmHg (35-45); ABG PO2 29 mmHg (85-104); ABG TCO2 30 mEq/L (20-26); Blood Gas Modality ASSIST CONTROL; Blood Gas VT 500 cc
[2021-09-25 04:32] LABS: Basophils # 0.1 K/mcL (0.0-0.2); Basophils % 0.7 %; Eosinophils # 0.3 K/mcL (0.0-0.6); Eosinophils % 2.9 %; Hematocrit 38.5 % (37.5-50.1); Hemoglobin 12.6 g/dL (12.9-16.9); Immature Granulocytes % 0.7 % (0-4); Lymphocytes # 1.1 K/mcL (0.6-4.6); Lymphocytes % 12.1 %; Mean Corpuscular HGB Conc 32.7 g/dL (31.6-35.5); Mean Corpuscular Hemoglobin 31.7 pg (28.0-33.3); Mean Platelet Volume 10.4 fL (9.4-12.4); Monocytes # 1.1 K/mcL (0.0-1.3); Monocytes % 12.1 %; Neutrophils # 6.5 K/mcL (1.6-8.9); Platelet Count 195 K/mcL (140-400); Red Blood Count 3.97 M/mcL (4.19-5.50); Red Cell Distribution Width 13.2 % (11.5-14.5); Segmented Neutrophils % 71.5 %
[2021-09-25 04:35] LABS: VBG Ionized Calcium 1.07 mmol/L (1.15-1.35)
[2021-09-25 04:44] LABS: ABG Base Excess 1 mEq/L (-2 to 3); ABG HCO3 27 mEq/L (21-27); ABG Oxygen Saturation 95 % (95-98); ABG PCO2 45 mmHg (35-45); ABG PH 7.38 pH Units (7.32-7.45); ABG PO2 78 mmHg (85-104); ABG TCO2 28 mEq/L (20-26); Blood Gas Modality ASSIST CONTROL; Blood Gas VT 500 cc
[2021-09-25 04:51] LABS: Calcium 8.7 mg/dL (8.6-10.3); Magnesium 1.7 mg/dL (1.6-2.6); Phosphorous 5.2 mg/dL (2.7-4.5); Potassium 3.6 mEq/L (3.5-5.1)
[2021-09-25 05:17] LABS: VBG Ionized Calcium 1.06 mmol/L (1.15-1.35)
[2021-09-25] MEDS: Potassium Chloride 40 MEQ/200 ML BAG IVPB PRN ×3 (05:17→13:36)
[2021-09-25] MEDS ORDERED: Calcium Gluconate 1gm/50mL 1 GM/50 ML BAG IVPB SCH (06:00)
[2021-09-25] MEDS: Calcium Gluconate 1gm/50mL 1 GM/50 ML BAG IVPB SCH ×2 (06:15→07:07)
[2021-09-25] MEDS: Amiodarone Premix 360 MG/200 ML BAG IVC SCH ×2 (07:37→19:56)
[2021-09-25] MEDS: ceFAZolin 2,000 MG in 0.9 % Sodium Chloride 100 ML IVPB SCH ×3 (07:38→23:43)
[2021-09-25] MEDS: Pantoprazole 40 MG VIAL IVP SCH (08:27)
[2021-09-25] MEDS ORDERED: cefTRIAXone 2,000 MG in Water for inj. (sterile) 20 ML IVP SCH (09:00)
[2021-09-25] MEDS: Chlorhexidine Rinse 15 ML MOUTHWASH MM SCH ×2 (09:38→20:27)
[2021-09-25] MEDS: Cholecalciferol (D-3) 1,000 UNIT (25MCG) TABLET PO SCH (09:38)
[2021-09-25] MEDS: *HR* Amiodarone 200 MG TABLET PO SCH ×2 (09:38→20:28)
[2021-09-25] MEDS: Lactobacillus 1 EACH CAP.SPRINK PO SCH (09:38)
[2021-09-25] MEDS: Multivit/Ca/Min/Fe/FA 1 TAB TABLET PO SCH (09:38)
[2021-09-25] MEDS: Metoprolol XL (24 HR) Succ 25 MG TAB.ER.24H PO SCH ×2 (09:38→20:29)
[2021-09-25] MEDS: Docusate Oral Soln 100 MG/10 ML UDC GTUBE SCH ×2 (09:38→20:27)
[2021-09-25] MEDS: Furosemide 40 MG/4 ML VIAL IVP SCH ×2 (09:56→20:34)
[2021-09-25] MEDS: Lacri-Lube 3.5 GM TUBE BOTH EYES SCH ×2 (09:57→20:30)
[2021-09-25] MEDS: Heparin 25,000UNIT/250ML 1/2NS 25,000 UNIT/250 ML IV.SOLN IVC SCH ×2 (10:51→21:52)
[2021-09-25 11:26] LABS: VBG Ionized Calcium 1.22 mmol/L (1.15-1.35)
[2021-09-25] MEDS: Norepinephrine 4 MG/254 ML IV.SOLN IVC SCH (11:34)
[2021-09-25 12:04] LABS: Potassium 3.8 mEq/L (3.5-5.1)
[2021-09-25] MEDS: *HR* Metoprolol 5 MG/5 ML VIAL IVP SCH (21:02)
[2021-09-26] MEDS ORDERED: *HR* Metoprolol 5 MG/5 ML VIAL IVP SCH
[2021-09-26] MEDS ORDERED: *HR* Midazolam HCl 5 MG/5 ML VIAL IVP ONE (00:44)
[2021-09-26] MEDS: Dexmedetomidine HCl 400 MCG/100 ML MLS IVC SCH ×11 (01:12→21:54)
[2021-09-26] MEDS: Norepinephrine 4 MG/254 ML IV.SOLN IVC SCH ×2 (01:43→09:46)
[2021-09-26] MEDS: Midazolam HCl 100 MG in 0.9 % Sodium Chloride 80 ML IVC SCH ×3 (02:06→21:21)
[2021-09-26] MEDS: Ipratropium/Albuterol Neb 3 ML IH SCH ×4 (03:48→20:02)
[2021-09-26] MEDS: *HR* Metoprolol 5 MG/5 ML VIAL IVP SCH ×2 (03:58→08:09)
[2021-09-26 04:02] LABS: VBG Ionized Calcium 1.19 mmol/L (1.15-1.35)
[2021-09-26] MEDS: FentaNYL (PF) 2,500 MCG/50 ML IV.SOLN IVC SCH ×3 (04:12→23:40)
[2021-09-26 04:18] LABS: Basophils # 0.1 K/mcL (0.0-0.2); Basophils % 0.8 %; Eosinophils # 0.3 K/mcL (0.0-0.6); Eosinophils % 2.6 %; Hematocrit 39.7 % (37.5-50.1); Hemoglobin 12.8 g/dL (12.9-16.9); Immature Granulocytes % 0.8 % (0-4); Lymphocytes # 1.3 K/mcL (0.6-4.6); Lymphocytes % 12.1 %; Mean Corpuscular HGB Conc 32.2 g/dL (31.6-35.5); Mean Corpuscular Hemoglobin 31.5 pg (28.0-33.3); Mean Corpuscular Volume 97.8 fL (83.0-100.0); Mean Platelet Volume 10.1 fL (9.4-12.4); Monocytes # 1.2 K/mcL (0.0-1.3); Monocytes % 11.1 %; Neutrophils # 7.7 K/mcL (1.6-8.9); Platelet Count 254 K/mcL (140-400); Red Blood Count 4.06 M/mcL (4.19-5.50); Segmented Neutrophils % 72.6 %; White Blood Count 10.6 K/mcL (4.3-11.1)
[2021-09-26 04:23] LABS: ABG Base Excess 1 mEq/L (-2 to 3); ABG HCO3 27 mEq/L (21-27); ABG Oxygen Saturation 94 % (95-98); ABG PCO2 49 mmHg (35-45); ABG PH 7.35 pH Units (7.32-7.45); ABG PO2 77 mmHg (85-104); ABG TCO2 28 mEq/L (20-26); Blood Gas VT 500 cc
[2021-09-26 04:33] LABS: Calcium 8.7 mg/dL (8.6-10.3); Magnesium 1.8 mg/dL (1.6-2.6); Phosphorous 5.6 mg/dL (2.7-4.5); Potassium 4.3 mEq/L (3.5-5.1)
[2021-09-26] MEDS: ceFAZolin 2,000 MG in 0.9 % Sodium Chloride 100 ML IVPB SCH (07:33)
[2021-09-26] MEDS: Amiodarone Premix 360 MG/200 ML BAG IVC SCH ×2 (07:45→21:30)
[2021-09-26] MEDS: *HR* Amiodarone 200 MG TABLET PO SCH ×2 (07:55→21:00)
[2021-09-26] MEDS: Cholecalciferol (D-3) 1,000 UNIT (25MCG) TABLET PO SCH (07:56)
[2021-09-26] MEDS: Multivit/Ca/Min/Fe/FA 1 TAB TABLET PO SCH (07:57)
[2021-09-26] MEDS: Lactobacillus 1 EACH CAP.SPRINK PO SCH (07:58)
[2021-09-26] MEDS: Lacri-Lube 3.5 GM TUBE BOTH EYES SCH ×2 (07:59→21:01)
[2021-09-26] MEDS: Docusate Oral Soln 100 MG/10 ML UDC GTUBE SCH ×2 (07:59→21:00)
[2021-09-26] MEDS: Pantoprazole 40 MG VIAL IVP SCH (08:07)
[2021-09-26] MEDS: Chlorhexidine Rinse 15 ML MOUTHWASH MM SCH ×2 (08:07→21:00)
[2021-09-26] MEDS: Furosemide 40 MG/4 ML VIAL IVP SCH ×2 (08:25→21:00)
[2021-09-26] MEDS: Heparin 25,000UNIT/250ML 1/2NS 25,000 UNIT/250 ML IV.SOLN IVC SCH ×2 (09:45→21:50)
[2021-09-26] MEDS: cefTRIAXone 2,000 MG in Water for inj. (sterile) 20 ML IVP SCH (15:37)
[2021-09-26] MEDS ORDERED: Thiamine (B-1) 100 MG in 0.9 % Sodium Chloride 50 ML IVPB SCH (16:30)
[2021-09-26] MEDS: Multivitamin Liquid 15 ML UDC GTUBE SCH (17:43)
[2021-09-26] MEDS: Folic Acid 1 MG TABLET GTUBE SCH (17:43)
[2021-09-26] MEDS: Thiamine (B-1) 100 MG TABLET GTUBE SCH (17:43)
[2021-09-27] MEDS: Dexmedetomidine HCl 400 MCG/100 ML MLS IVC SCH ×11 (00:11→22:57)
[2021-09-27] MEDS: Ipratropium/Albuterol Neb 3 ML IH SCH ×6 (03:23→23:25)
[2021-09-27 03:47] LABS: Basophils # 0.1 K/mcL (0.0-0.2); Basophils % 0.7 %; Eosinophils # 0.4 K/mcL (0.0-0.6); Eosinophils % 4.2 %; Hematocrit 37.5 % (37.5-50.1); Hemoglobin 12.3 g/dL (12.9-16.9); Immature Granulocytes % 1.6 % (0-4); Lymphocytes % 11.2 %; Mean Corpuscular HGB Conc 32.8 g/dL (31.6-35.5); Mean Corpuscular Hemoglobin 31.9 pg (28.0-33.3); Mean Corpuscular Volume 97.4 fL (83.0-100.0); Mean Platelet Volume 9.5 fL (9.4-12.4); Monocytes # 1.1 K/mcL (0.0-1.3); Monocytes % 12.4 %; Neutrophils # 6.4 K/mcL (1.6-8.9); Platelet Count 226 K/mcL (140-400); Red Blood Count 3.85 M/mcL (4.19-5.50); Red Cell Distribution Width 12.9 % (11.5-14.5); Segmented Neutrophils % 69.9 %; White Blood Count 9.2 K/mcL (4.3-11.1)
[2021-09-27 04:08] LABS: Calcium 8.6 mg/dL (8.6-10.3); Magnesium 1.8 mg/dL (1.6-2.6); Phosphorous 4.6 mg/dL (2.7-4.5); Potassium 4.2 mEq/L (3.5-5.1)
[2021-09-27 04:26] LABS: ABG Base Excess 4 mEq/L (-2 to 3); ABG HCO3 30 mEq/L (21-27); ABG Oxygen Saturation 92 % (95-98); ABG PCO2 51 mmHg (35-45); ABG PH 7.38 pH Units (7.32-7.45); ABG PO2 66 mmHg (85-104); ABG TCO2 32 mEq/L (20-26); Blood Gas VT 500 cc
[2021-09-27 04:30] LABS: VBG Ionized Calcium 1.21 mmol/L (1.15-1.35)
[2021-09-27] MEDS: Doxycycline 100 MG in 0.9 % Sodium Chloride Mini Bag 100 ML IVPB SCH ×2 (05:18→17:59)
[2021-09-27] MEDS: Chlorhexidine Rinse 15 ML MOUTHWASH MM SCH ×2 (08:37→20:11)
[2021-09-27] MEDS: Multivitamin Liquid 15 ML UDC GTUBE SCH (08:37)
[2021-09-27] MEDS: Pantoprazole 40 MG VIAL IVP SCH (08:37)
[2021-09-27] MEDS: Docusate Oral Soln 100 MG/10 ML UDC GTUBE SCH ×2 (08:37→20:11)
[2021-09-27] MEDS: *HR* Amiodarone 200 MG TABLET PO SCH ×2 (08:38→20:11)
[2021-09-27] MEDS: Lactobacillus 1 EACH CAP.SPRINK PO SCH (08:38)
[2021-09-27] MEDS: Folic Acid 1 MG TABLET GTUBE SCH (08:38)
[2021-09-27] MEDS: Magnesium Oxide 400 MG TABLET PO SCH ×2 (08:38→20:11)
[2021-09-27] MEDS: Thiamine (B-1) 100 MG TABLET GTUBE SCH (08:38)
[2021-09-27] MEDS: Cholecalciferol (D-3) 1,000 UNIT (25MCG) TABLET PO SCH (08:38)
[2021-09-27] MEDS: Heparin 25,000UNIT/250ML 1/2NS 25,000 UNIT/250 ML IV.SOLN IVC SCH ×2 (08:53→21:30)
[2021-09-27] MEDS: Lacri-Lube 3.5 GM TUBE BOTH EYES SCH ×2 (08:55→20:30)
[2021-09-27] MEDS: Furosemide 40 MG/4 ML VIAL IVP SCH ×2 (08:55→20:29)
[2021-09-27] MEDS: Norepinephrine 4 MG/254 ML IV.SOLN IVC SCH (11:33)
[2021-09-27] MEDS: Amiodarone Premix 360 MG/200 ML BAG IVC SCH (11:36)
[2021-09-27] MEDS: Midazolam HCl 100 MG in 0.9 % Sodium Chloride 80 ML IVC SCH (11:38)
[2021-09-27] MEDS: FentaNYL (PF) 2,500 MCG/50 ML IV.SOLN IVC SCH (12:08)
[2021-09-27] MEDS ORDERED: Albumin 25% 25gram/100mL 25 GM/100 ML IV.SOLN IVPB ONE (14:32)
[2021-09-27] MEDS: cefTRIAXone 2,000 MG in Water for inj. (sterile) 20 ML IVP SCH (16:28)
[2021-09-27] MEDS: MethylPREDNISolone 40 MG/ML VIAL IVP SCH ×2 (16:28→23:24)
[2021-09-28] MEDS: Dexmedetomidine HCl 400 MCG/100 ML MLS IVC SCH ×8 (01:34→22:55)
[2021-09-28] MEDS: Ipratropium/Albuterol Neb 3 ML IH SCH ×6 (04:15→23:30)
[2021-09-28 04:33] LABS: ABG Base Excess 1 mEq/L (-2 to 3); ABG HCO3 25 mEq/L (21-27); ABG Oxygen Saturation 89 % (95-98); ABG PCO2 39 mmHg (35-45); ABG PH 7.42 pH Units (7.32-7.45); ABG PO2 56 mmHg (85-104); ABG TCO2 26 mEq/L (20-26); Blood Gas VT 500 cc
[2021-09-28 04:35] LABS: VBG Ionized Calcium 1.18 mmol/L (1.15-1.35)
[2021-09-28 04:53] LABS: Basophils % 0.3 %; Eosinophils % 0.2 %; Hematocrit 38.8 % (37.5-50.1); Immature Granulocytes % 1.9 % (0-4); Lymphocytes # 0.6 K/mcL (0.6-4.6); Lymphocytes % 5.8 %; Mean Corpuscular HGB Conc 33.5 g/dL (31.6-35.5); Mean Corpuscular Volume 95.6 fL (83.0-100.0); Mean Platelet Volume 9.9 fL (9.4-12.4); Monocytes # 0.2 K/mcL (0.0-1.3); Monocytes % 2.2 %; Neutrophils # 8.5 K/mcL (1.6-8.9); Platelet Count 240 K/mcL (140-400); Red Blood Count 4.06 M/mcL (4.19-5.50); Red Cell Distribution Width 12.3 % (11.5-14.5); Segmented Neutrophils % 89.6 %; White Blood Count 9.5 K/mcL (4.3-11.1)
[2021-09-28] MEDS: Norepinephrine 4 MG/254 ML IV.SOLN IVC SCH ×3 (05:25→20:27)
[2021-09-28 05:26] LABS: BUN/Creatinine Ratio 34 (6-26); Blood Urea Nitrogen 45 mg/dL (8-23); Calcium 9.1 mg/dL (8.6-10.3); Carbon Dioxide 29 mEq/L (23-29); Chloride 97 mEq/L (98-107); Glucose 244 mg/dL (70-105); Magnesium 2.1 mg/dL (1.6-2.6); Osmolality,Calculated 300 (280-300); Phosphorous 4.3 mg/dL (2.7-4.5); Potassium 4.4 mEq/L (3.5-5.1); Sodium 135 mEq/L (136-145); eGFR For African Americans > 60 (> 60); eGFR For Non-African Americans 54 (> 60)
[2021-09-28] MEDS: Doxycycline 100 MG in 0.9 % Sodium Chloride Mini Bag 100 ML IVPB SCH ×2 (06:40→17:14)
[2021-09-28] MEDS: Midazolam HCl 50 MG/100 ML IV.SOLN IVC SCH (08:00)
[2021-09-28] MEDS: FentaNYL (PF) 1,000 MCG/100 ML IV.SOLN IVC SCH ×4 (08:01→22:59)
[2021-09-28] MEDS: Pantoprazole 40 MG VIAL IVP SCH (08:04)
[2021-09-28] MEDS: MethylPREDNISolone 40 MG/ML VIAL IVP SCH ×3 (08:04→23:29)
[2021-09-28] MEDS: Heparin 25,000UNIT/250ML 1/2NS 25,000 UNIT/250 ML IV.SOLN IVC SCH ×2 (08:51→20:28)
[2021-09-28] MEDS: Docusate Oral Soln 100 MG/10 ML UDC GTUBE SCH ×2 (08:53→20:28)
[2021-09-28] MEDS: Cholecalciferol (D-3) 1,000 UNIT (25MCG) TABLET PO SCH (08:53)
[2021-09-28] MEDS: Multivitamin Liquid 15 ML UDC GTUBE SCH (08:53)
[2021-09-28] MEDS: *HR* Amiodarone 200 MG TABLET PO SCH ×2 (08:53→20:30)
[2021-09-28] MEDS: Thiamine (B-1) 100 MG TABLET GTUBE SCH (08:53)
[2021-09-28] MEDS: Magnesium Oxide 400 MG TABLET PO SCH ×2 (08:53→20:30)
[2021-09-28] MEDS: Folic Acid 1 MG TABLET GTUBE SCH (08:53)
[2021-09-28] MEDS: Lactobacillus 1 EACH CAP.SPRINK PO SCH (08:53)
[2021-09-28] MEDS: Chlorhexidine Rinse 15 ML MOUTHWASH MM SCH ×2 (08:54→20:28)
[2021-09-28] MEDS: Lacri-Lube 3.5 GM TUBE BOTH EYES SCH ×2 (08:54→20:29)
[2021-09-28] MEDS: Furosemide 40 MG/4 ML VIAL IVP SCH ×2 (08:57→20:42)
[2021-09-28] MEDS: Amiodarone Premix 360 MG/200 ML BAG IVC SCH ×3 (11:59→22:56)
[2021-09-28] MEDS: cefTRIAXone 2,000 MG in Water for inj. (sterile) 20 ML IVP SCH (15:17)
[2021-09-28 22:54] LABS: Appearance of Body Fluid Hazy (Clear); Volume of Body Fluid 26 mL
[2021-09-29] MEDS: Dexmedetomidine HCl 400 MCG/100 ML MLS IVC SCH ×9 (01:23→22:28)
[2021-09-29] MEDS: Midazolam HCl 50 MG/100 ML IV.SOLN IVC SCH ×2 (03:07→23:15)
[2021-09-29] MEDS: Ipratropium/Albuterol Neb 3 ML IH SCH ×6 (03:36→23:31)
[2021-09-29 04:09] LABS: ABG Base Excess 3 mEq/L (-2 to 3); ABG HCO3 28 mEq/L (21-27); ABG Oxygen Saturation 90 % (95-98); ABG PCO2 47 mmHg (35-45); ABG PH 7.39 pH Units (7.32-7.45); ABG PO2 61 mmHg (85-104); ABG TCO2 30 mEq/L (20-26); Blood Gas VT 500 cc
[2021-09-29] MEDS: FentaNYL (PF) 1,000 MCG/100 ML IV.SOLN IVC SCH ×4 (04:09→22:28)
[2021-09-29] MEDS: Norepinephrine 4 MG/254 ML IV.SOLN IVC SCH ×3 (04:27→19:11)
[2021-09-29] MEDS: Doxycycline 100 MG in 0.9 % Sodium Chloride Mini Bag 100 ML IVPB SCH ×2 (05:01→17:05)
[2021-09-29 05:02] LABS: VBG Ionized Calcium 1.12 mmol/L (1.15-1.35)
[2021-09-29 05:06] LABS: Basophils % 0.3 %; Eosinophils % 0.1 %; Hematocrit 38.4 % (37.5-50.1); Hemoglobin 12.7 g/dL (12.9-16.9); Immature Granulocytes % 2.9 % (0-4); Lymphocytes # 0.8 K/mcL (0.6-4.6); Lymphocytes % 5.9 %; Mean Corpuscular HGB Conc 33.1 g/dL (31.6-35.5); Mean Corpuscular Hemoglobin 31.4 pg (28.0-33.3); Mean Platelet Volume 10.3 fL (9.4-12.4); Monocytes # 0.7 K/mcL (0.0-1.3); Monocytes % 5.2 %; Platelet Count 246 K/mcL (140-400); Red Blood Count 4.04 M/mcL (4.19-5.50); Red Cell Distribution Width 12.1 % (11.5-14.5); Segmented Neutrophils % 85.6 %
[2021-09-29 05:21] LABS: BUN/Creatinine Ratio 43 (6-26); Blood Urea Nitrogen 52 mg/dL (8-23); Calcium 9.1 mg/dL (8.6-10.3); Carbon Dioxide 27 mEq/L (23-29); Chloride 96 mEq/L (98-107); Glucose 277 mg/dL (70-105); Magnesium 2.1 mg/dL (1.6-2.6); Osmolality,Calculated 300 (280-300); Phosphorous 3.5 mg/dL (2.7-4.5); Potassium 4.2 mEq/L (3.5-5.1); Sodium 133 mEq/L (136-145); eGFR For African Americans > 60 (> 60); eGFR For Non-African Americans > 60 (> 60)
[2021-09-29] MEDS: Cholecalciferol (D-3) 1,000 UNIT (25MCG) TABLET PO SCH (07:33)
[2021-09-29] MEDS: Lactobacillus 1 EACH CAP.SPRINK PO SCH (07:33)
[2021-09-29] MEDS: Docusate Oral Soln 100 MG/10 ML UDC GTUBE SCH ×2 (07:33→19:45)
[2021-09-29] MEDS: Thiamine (B-1) 100 MG TABLET GTUBE SCH (07:33)
[2021-09-29] MEDS: Magnesium Oxide 400 MG TABLET PO SCH ×2 (07:33→19:45)
[2021-09-29] MEDS: *HR* Amiodarone 200 MG TABLET PO SCH ×2 (07:33→19:45)
[2021-09-29] MEDS: Folic Acid 1 MG TABLET GTUBE SCH (07:34)
[2021-09-29] MEDS: Chlorhexidine Rinse 15 ML MOUTHWASH MM SCH ×2 (07:34→19:45)
[2021-09-29] MEDS: Pantoprazole 40 MG VIAL IVP SCH (07:34)
[2021-09-29] MEDS: MethylPREDNISolone 40 MG/ML VIAL IVP SCH ×3 (07:34→23:17)
[2021-09-29] MEDS: Multivitamin Liquid 15 ML UDC GTUBE SCH (07:34)
[2021-09-29] MEDS: Lacri-Lube 3.5 GM TUBE BOTH EYES SCH ×2 (07:34→19:45)
[2021-09-29] MEDS: Furosemide 40 MG/4 ML VIAL IVP SCH ×2 (07:36→19:49)
[2021-09-29] MEDS: Heparin 25,000UNIT/250ML 1/2NS 25,000 UNIT/250 ML IV.SOLN IVC SCH ×3 (09:26→22:16)
[2021-09-29] MEDS: Amiodarone Premix 360 MG/200 ML BAG IVC SCH (13:43)
[2021-09-29] MEDS: cefTRIAXone 2,000 MG in Water for inj. (sterile) 20 ML IVP SCH (15:13)
[2021-09-29] MEDS ORDERED: *HR* Dextrose 50 % in Water (Syg) 50 ML SYRINGE IVP PRN (23:10)
[2021-09-29] MEDS ORDERED: Dextrose Gel 15 GM/37.5 ML TUBE PO PRN ×2 (23:10)
[2021-09-29] MEDS ORDERED: D5% in Water 1,000 ML IVC PRN (23:10)
[2021-09-29] MEDS: Insulin LISPRO 300 UNITS/3 ML VIAL SUBQ SCH (23:17)
[2021-09-30] MEDS: Furosemide 240 MG in 0.9 % Sodium Chloride 96 ML IVC SCH ×2 (00:09→22:42)
[2021-09-30] MEDS: Albumin 25% 12.5gm/50mL 12.5 GM/50 ML IV.SOLN IVPB SCH ×4 (00:09→23:14)
[2021-09-30] MEDS: Dexmedetomidine HCl 400 MCG/100 ML MLS IVC SCH ×9 (01:14→22:59)
[2021-09-30] MEDS: Amiodarone Premix 360 MG/200 ML BAG IVC SCH (03:19)
[2021-09-30] MEDS: Norepinephrine 4 MG/254 ML IV.SOLN IVC SCH ×3 (03:21→19:55)
[2021-09-30] MEDS: Ipratropium/Albuterol Neb 3 ML IH SCH ×6 (03:34→23:37)
[2021-09-30] MEDS: FentaNYL (PF) 1,000 MCG/100 ML IV.SOLN IVC SCH ×4 (03:43→19:47)
[2021-09-30 03:47] LABS: ABG Base Excess 3 mEq/L (-2 to 3); ABG HCO3 28 mEq/L (21-27); ABG Oxygen Saturation 92 % (95-98); ABG PCO2 44 mmHg (35-45); ABG PH 7.41 pH Units (7.32-7.45); ABG PO2 64 mmHg (85-104); ABG TCO2 29 mEq/L (20-26); Blood Gas Modality ASSIST CONTROL; Blood Gas VT 450 cc
[2021-09-30 04:47] LABS: Basophils % 0.2 %; Hematocrit 36.2 % (37.5-50.1); Hemoglobin 12.2 g/dL (12.9-16.9); Immature Granulocytes % 4.1 % (0-4); Lymphocytes # 0.7 K/mcL (0.6-4.6); Lymphocytes % 5.2 %; Mean Corpuscular HGB Conc 33.7 g/dL (31.6-35.5); Mean Corpuscular Hemoglobin 32.1 pg (28.0-33.3); Mean Corpuscular Volume 95.3 fL (83.0-100.0); Mean Platelet Volume 10.4 fL (9.4-12.4); Monocytes # 0.6 K/mcL (0.0-1.3); Monocytes % 4.7 %; Neutrophils # 11.2 K/mcL (1.6-8.9); Platelet Count 275 K/mcL (140-400); Red Cell Distribution Width 12.6 % (11.5-14.5); Segmented Neutrophils % 85.8 %; White Blood Count 13.1 K/mcL (4.3-11.1)
[2021-09-30 04:50] LABS: VBG Ionized Calcium 1.19 mmol/L (1.15-1.35)
[2021-09-30] MEDS: Doxycycline 100 MG in 0.9 % Sodium Chloride Mini Bag 100 ML IVPB SCH ×2 (04:51→17:45)
[2021-09-30] MEDS: Insulin LISPRO 300 UNITS/3 ML VIAL SUBQ SCH ×4 (04:53→23:09)
[2021-09-30 05:06] LABS: Magnesium 1.8 mg/dL (1.6-2.6); Phosphorous 2.8 mg/dL (2.7-4.5)
[2021-09-30 05:07] LABS: Alanine Aminotransferase 39 Units/L (7-52); Albumin 3.2 g/dL (3.5-5.7); Alkaline Phosphatase 55 Units/L (34-104); Aspartate Amino Transferase 43 Units/L (13-39); BUN/Creatinine Ratio 47 (6-26); Bilirubin,Total 0.3 mg/dL (0.3-1.0); Blood Urea Nitrogen 54 mg/dL (8-23); Calcium 9.3 mg/dL (8.6-10.3); Carbon Dioxide 30 mEq/L (23-29); Chloride 97 mEq/L (98-107); Globulin 3.3 g/dL (2.4-3.5); Glucose 343 mg/dL (70-105); Osmolality,Calculated 310 (280-300); Sodium 136 mEq/L (136-145); Total Protein 6.5 g/dL (6.4-8.9); eGFR For African Americans > 60 (> 60); eGFR For Non-African Americans > 60 (> 60)
[2021-09-30] MEDS: MethylPREDNISolone 40 MG/ML VIAL IVP SCH ×3 (08:09→23:14)
[2021-09-30] MEDS: Pantoprazole 40 MG VIAL IVP SCH (08:14)
[2021-09-30] MEDS: Lacri-Lube 3.5 GM TUBE BOTH EYES SCH ×2 (08:16→19:55)
[2021-09-30] MEDS: Docusate Oral Soln 100 MG/10 ML UDC GTUBE SCH ×2 (08:17→19:55)
[2021-09-30] MEDS: Chlorhexidine Rinse 15 ML MOUTHWASH MM SCH ×2 (08:17→19:55)
[2021-09-30] MEDS: Cholecalciferol (D-3) 1,000 UNIT (25MCG) TABLET PO SCH (08:17)
[2021-09-30] MEDS: Magnesium Oxide 400 MG TABLET PO SCH ×2 (08:18→19:55)
[2021-09-30] MEDS: Lactobacillus 1 EACH CAP.SPRINK PO SCH (08:18)
[2021-09-30] MEDS: Multivitamin Liquid 15 ML UDC GTUBE SCH (08:18)
[2021-09-30] MEDS: *HR* Amiodarone 200 MG TABLET PO SCH (08:18)
[2021-09-30] MEDS: Thiamine (B-1) 100 MG TABLET GTUBE SCH (08:18)
[2021-09-30] MEDS: Folic Acid 1 MG TABLET GTUBE SCH (08:18)
[2021-09-30] MEDS: Heparin 25,000UNIT/250ML 1/2NS 25,000 UNIT/250 ML IV.SOLN IVC SCH ×2 (10:07→22:56)
[2021-09-30] MEDS: cefTRIAXone 2,000 MG in Water for inj. (sterile) 20 ML IVP SCH (15:19)
[2021-09-30] MEDS: Insulin DETEMIR 100 UNIT/ML X5UNITS SUBQ SCH (19:55)
[2021-09-30] MEDS ORDERED: *HR* Midazolam HCl 5 MG/5 ML VIAL IVP ONE (21:37)
[2021-09-30] MEDS: Midazolam HCl 50 MG/100 ML IV.SOLN IVC SCH (23:26)
[2021-10-01] MEDS: FentaNYL (PF) 1,000 MCG/100 ML IV.SOLN IVC SCH ×5 (00:44→21:52)
[2021-10-01] MEDS: Dexmedetomidine HCl 400 MCG/100 ML MLS IVC SCH ×10 (01:51→22:07)
[2021-10-01] MEDS: Norepinephrine 4 MG/254 ML IV.SOLN IVC SCH ×2 (03:16→14:14)
[2021-10-01 03:27] LABS: VBG Ionized Calcium 1.11 mmol/L (1.15-1.35)
[2021-10-01 03:29] LABS: Basophils # 0.1 K/mcL (0.0-0.2); Basophils % 0.3 %; Hematocrit 37.9 % (37.5-50.1); Hemoglobin 12.4 g/dL (12.9-16.9); Immature Granulocytes % 3.6 % (0-4); Lymphocytes % 5.2 %; Mean Corpuscular HGB Conc 32.7 g/dL (31.6-35.5); Mean Corpuscular Hemoglobin 31.5 pg (28.0-33.3); Mean Corpuscular Volume 96.2 fL (83.0-100.0); Mean Platelet Volume 10.2 fL (9.4-12.4); Monocytes % 5.5 %; Platelet Count 311 K/mcL (140-400); Red Blood Count 3.94 M/mcL (4.19-5.50); Red Cell Distribution Width 12.9 % (11.5-14.5); Segmented Neutrophils % 85.4 %; White Blood Count 18.7 K/mcL (4.3-11.1)
[2021-10-01 03:42] LABS: Magnesium 1.8 mg/dL (1.6-2.6); Phosphorous 3.5 mg/dL (2.7-4.5)
[2021-10-01 03:43] LABS: Alanine Aminotransferase 46 Units/L (7-52); Albumin 3.4 g/dL (3.5-5.7); Alkaline Phosphatase 48 Units/L (34-104); Aspartate Amino Transferase 38 Units/L (13-39); BUN/Creatinine Ratio 48 (6-26); Bilirubin,Total 0.3 mg/dL (0.3-1.0); Blood Urea Nitrogen 63 mg/dL (8-23); Calcium 9.2 mg/dL (8.6-10.3); Carbon Dioxide 31 mEq/L (23-29); Chloride 97 mEq/L (98-107); Globulin 3.4 g/dL (2.4-3.5); Glucose 239 mg/dL (70-105); Osmolality,Calculated 312 (280-300); Potassium 4.6 mEq/L (3.5-5.1); Sodium 138 mEq/L (136-145); Total Protein 6.8 g/dL (6.4-8.9); eGFR For African Americans > 60 (> 60); eGFR For Non-African Americans 56 (> 60)
[2021-10-01] MEDS: Ipratropium/Albuterol Neb 3 ML IH SCH ×6 (03:49→23:36)
[2021-10-01 04:02] LABS: ABG Base Excess 7 mEq/L (-2 to 3); ABG HCO3 32 mEq/L (21-27); ABG Oxygen Saturation 90 % (95-98); ABG PCO2 45 mmHg (35-45); ABG PH 7.46 pH Units (7.32-7.45); ABG PO2 56 mmHg (85-104); ABG TCO2 33 mEq/L (20-26); Blood Gas VT 450 cc
[2021-10-01] MEDS ORDERED: *HR* Metoprolol 5 MG/5 ML VIAL IVP ONE (04:33)
[2021-10-01] MEDS: Doxycycline 100 MG in 0.9 % Sodium Chloride Mini Bag 100 ML IVPB SCH ×2 (04:50→17:12)
[2021-10-01] MEDS: Insulin LISPRO 300 UNITS/3 ML VIAL SUBQ SCH ×4 (04:55→23:43)
[2021-10-01] MEDS: Midazolam HCl 50 MG/100 ML IV.SOLN IVC SCH ×3 (08:20→23:44)
[2021-10-01] MEDS: MethylPREDNISolone 40 MG/ML VIAL IVP SCH ×2 (08:33→17:09)
[2021-10-01] MEDS: Chlorhexidine Rinse 15 ML MOUTHWASH MM SCH ×2 (08:33→19:42)
[2021-10-01] MEDS: Pantoprazole 40 MG VIAL IVP SCH (08:33)
[2021-10-01] MEDS: Multivitamin Liquid 15 ML UDC GTUBE SCH (08:33)
[2021-10-01] MEDS: Cholecalciferol (D-3) 1,000 UNIT (25MCG) TABLET PO SCH (08:34)
[2021-10-01] MEDS: Thiamine (B-1) 100 MG TABLET GTUBE SCH (08:35)
[2021-10-01] MEDS: Docusate Oral Soln 100 MG/10 ML UDC GTUBE SCH ×2 (08:35→19:42)
[2021-10-01] MEDS: Lactobacillus 1 EACH CAP.SPRINK PO SCH (08:35)
[2021-10-01] MEDS: Albumin 25% 12.5gm/50mL 12.5 GM/50 ML IV.SOLN IVPB SCH (08:35)
[2021-10-01] MEDS: Folic Acid 1 MG TABLET GTUBE SCH (08:35)
[2021-10-01] MEDS: *HR* Amiodarone 200 MG TABLET PO SCH (08:35)
[2021-10-01] MEDS: Magnesium Oxide 400 MG TABLET PO SCH ×2 (08:36→19:53)
[2021-10-01] MEDS: Lacri-Lube 3.5 GM TUBE BOTH EYES SCH ×2 (08:36→19:42)
[2021-10-01] MEDS ORDERED: *HR* Metoprolol 5 MG/5 ML VIAL IVP PRN (08:44)
[2021-10-01] MEDS ORDERED: Calcium Gluconate 1gm/50mL 1 GM/50 ML BAG IVPB ONE ×2 (08:51→09:27)
[2021-10-01] MEDS ORDERED: Furosemide 480 MG in 0.9 % Sodium Chloride 192 ML IVC SCH (10:30)
[2021-10-01 10:33] LABS: ABG Base Excess 7 mEq/L (-2 to 3); ABG HCO3 32 mEq/L (21-27); ABG Oxygen Saturation 93 % (95-98); ABG PCO2 48 mmHg (35-45); ABG PH 7.44 pH Units (7.32-7.45); ABG PO2 66 mmHg (85-104); ABG TCO2 34 mEq/L (20-26); Blood Gas VT 420 cc
[2021-10-01] MEDS: Heparin 25,000UNIT/250ML 1/2NS 25,000 UNIT/250 ML IV.SOLN IVC SCH (11:00)
[2021-10-01] MEDS: Amiodarone Premix 360 MG/200 ML BAG IVC SCH ×3 (12:15→23:39)
[2021-10-01] MEDS: Albumin 25% 25gram/100mL 25 GM/100 ML IV.SOLN IVPB SCH ×2 (15:53→23:39)
[2021-10-01] MEDS: cefTRIAXone 2,000 MG in Water for inj. (sterile) 20 ML IVP SCH (15:56)
[2021-10-01] MEDS ORDERED: Furosemide 240 MG in 0.9 % Sodium Chloride 96 ML IVC SCH (16:45)
[2021-10-01 17:33] LABS: BUN/Creatinine Ratio 56 (6-26); Blood Urea Nitrogen 79 mg/dL (8-23); Calcium 9.7 mg/dL (8.6-10.3); Carbon Dioxide 36 mEq/L (23-29); Chloride 92 mEq/L (98-107); Glucose 267 mg/dL (70-105); Magnesium 2.3 mg/dL (1.6-2.6); Osmolality,Calculated 317 (280-300); Potassium 4.6 mEq/L (3.5-5.1); Sodium 137 mEq/L (136-145); eGFR For African Americans > 60 (> 60); eGFR For Non-African Americans 51 (> 60)
[2021-10-01] MEDS: Insulin DETEMIR 100 UNIT/ML X5UNITS SUBQ SCH (19:52)
[2021-10-02] MEDS: Heparin 25,000UNIT/250ML 1/2NS 25,000 UNIT/250 ML IV.SOLN IVC SCH ×2 (00:20→11:44)
[2021-10-02] MEDS: Dexmedetomidine HCl 400 MCG/100 ML MLS IVC SCH ×12 (00:23→23:20)
[2021-10-02] MEDS: Ipratropium/Albuterol Neb 3 ML IH SCH ×6 (03:20→23:21)
[2021-10-02] MEDS: FentaNYL (PF) 2,500 MCG/50 ML IV.SOLN IVC SCH ×3 (03:47→20:29)
[2021-10-02 04:37] LABS: VBG Ionized Calcium 1.12 mmol/L (1.15-1.35)
[2021-10-02 04:50] LABS: ABG Base Excess 10 mEq/L (-2 to 3); ABG HCO3 37 mEq/L (21-27); ABG Oxygen Saturation 93 % (95-98); ABG PCO2 55 mmHg (35-45); ABG PH 7.43 pH Units (7.32-7.45); ABG PO2 65 mmHg (85-104); ABG TCO2 38 mEq/L (20-26); Blood Gas VT 420 cc
[2021-10-02 05:07] LABS: Basophils # 0.1 K/mcL (0.0-0.2); Basophils % 0.4 %; Hematocrit 37.9 % (37.5-50.1); Hemoglobin 12.3 g/dL (12.9-16.9); Immature Granulocytes % 3.2 % (0-4); Lymphocytes # 1.5 K/mcL (0.6-4.6); Mean Corpuscular HGB Conc 32.5 g/dL (31.6-35.5); Mean Corpuscular Hemoglobin 31.3 pg (28.0-33.3); Mean Corpuscular Volume 96.4 fL (83.0-100.0); Mean Platelet Volume 10.4 fL (9.4-12.4); Monocytes # 1.4 K/mcL (0.0-1.3); Monocytes % 6.5 %; Neutrophils # 17.6 K/mcL (1.6-8.9); Nucleated Red Blood Cells 0.1 /100 WBC (0); Platelet Count 323 K/mcL (140-400); Red Blood Count 3.93 M/mcL (4.19-5.50); Segmented Neutrophils % 82.9 %; White Blood Count 21.2 K/mcL (4.3-11.1)
[2021-10-02] MEDS: Amiodarone Premix 360 MG/200 ML BAG IVC SCH ×4 (05:20→23:43)
[2021-10-02 05:25] LABS: Albumin/Globulin Ratio 1.2 (1.1-2.2); Bilirubin,Total 0.4 mg/dL (0.3-1.0); Calcium 9.7 mg/dL (8.6-10.3); Globulin 3.3 g/dL (2.4-3.5); Magnesium 2.5 mg/dL (1.6-2.6); Phosphorous 5.8 mg/dL (2.7-4.5); Potassium 4.9 mEq/L (3.5-5.1); Total Protein 7.3 g/dL (6.4-8.9)
[2021-10-02] MEDS: Doxycycline 100 MG in 0.9 % Sodium Chloride Mini Bag 100 ML IVPB SCH ×2 (05:44→17:13)
[2021-10-02] MEDS: MethylPREDNISolone 40 MG/ML VIAL IVP SCH ×2 (05:45→17:13)
[2021-10-02] MEDS: Insulin LISPRO 300 UNITS/3 ML VIAL SUBQ SCH ×3 (05:51→17:13)
[2021-10-02] MEDS: Midazolam HCl 50 MG/100 ML IV.SOLN IVC SCH ×3 (06:07→22:11)
[2021-10-02] MEDS: Docusate Oral Soln 100 MG/10 ML UDC GTUBE SCH ×2 (09:27→20:06)
[2021-10-02] MEDS: Multivitamin Liquid 15 ML UDC GTUBE SCH (09:27)
[2021-10-02] MEDS: Pantoprazole 40 MG VIAL IVP SCH (09:27)
[2021-10-02] MEDS: Albumin 25% 25gram/100mL 25 GM/100 ML IV.SOLN IVPB SCH ×2 (09:27→14:36)
[2021-10-02] MEDS: Magnesium Oxide 400 MG TABLET PO SCH ×2 (09:28→20:06)
[2021-10-02] MEDS: Cholecalciferol (D-3) 1,000 UNIT (25MCG) TABLET PO SCH (09:28)
[2021-10-02] MEDS: Thiamine (B-1) 100 MG TABLET GTUBE SCH (09:28)
[2021-10-02] MEDS: Lactobacillus 1 EACH CAP.SPRINK PO SCH (09:28)
[2021-10-02] MEDS: Chlorhexidine Rinse 15 ML MOUTHWASH MM SCH ×2 (09:28→20:06)
[2021-10-02] MEDS: Lacri-Lube 3.5 GM TUBE BOTH EYES SCH ×2 (09:29→20:06)
[2021-10-02] MEDS: *HR* Amiodarone 200 MG TABLET PO SCH (09:29)
[2021-10-02] MEDS: Folic Acid 1 MG TABLET GTUBE SCH (09:29)
[2021-10-02] MEDS ORDERED: acetaZOLAMIDE 375 MG in Water for inj. (sterile) 3.75 ML IVP ONE (13:00)
[2021-10-02] MEDS: cefTRIAXone 2,000 MG in Water for inj. (sterile) 20 ML IVP SCH (14:37)
[2021-10-02] MEDS: Insulin DETEMIR 100 UNIT/ML X5UNITS SUBQ SCH (20:06)
[2021-10-03] MEDS: Insulin LISPRO 300 UNITS/3 ML VIAL SUBQ SCH ×4 (00:03→17:16)
[2021-10-03] MEDS: Albumin 25% 25gram/100mL 25 GM/100 ML IV.SOLN IVPB SCH ×3 (00:03→15:54)
[2021-10-03] MEDS: Heparin 25,000UNIT/250ML 1/2NS 25,000 UNIT/250 ML IV.SOLN IVC SCH ×2 (00:07→12:10)
[2021-10-03] MEDS: Dexmedetomidine HCl 400 MCG/100 ML MLS IVC SCH ×8 (01:23→18:05)
[2021-10-03] MEDS: Ipratropium/Albuterol Neb 3 ML IH SCH ×4 (03:33→15:20)
[2021-10-03 04:00] LABS: VBG Ionized Calcium 1.18 mmol/L (1.15-1.35)
[2021-10-03 04:01] LABS: ABG Base Excess 9 mEq/L (-2 to 3); ABG HCO3 37 mEq/L (21-27); ABG Oxygen Saturation 96 % (95-98); ABG PCO2 67 mmHg (35-45); ABG PH 7.35 pH Units (7.32-7.45); ABG PO2 90 mmHg (85-104); ABG TCO2 39 mEq/L (20-26); Blood Gas Modality AF; Blood Gas VT 420 cc
[2021-10-03 04:02] LABS: Basophils % 0.2 %; Hematocrit 36.1 % (37.5-50.1); Hemoglobin 11.7 g/dL (12.9-16.9); Immature Granulocytes % 2.3 % (0-4); Lymphocytes # 1.2 K/mcL (0.6-4.6); Lymphocytes % 4.7 %; Mean Corpuscular HGB Conc 32.4 g/dL (31.6-35.5); Mean Corpuscular Hemoglobin 32.2 pg (28.0-33.3); Mean Corpuscular Volume 99.4 fL (83.0-100.0); Mean Platelet Volume 10.4 fL (9.4-12.4); Monocytes # 1.1 K/mcL (0.0-1.3); Monocytes % 4.4 %; Neutrophils # 21.9 K/mcL (1.6-8.9); Platelet Count 317 K/mcL (140-400); Red Blood Count 3.63 M/mcL (4.19-5.50); Red Cell Distribution Width 13.1 % (11.5-14.5); Segmented Neutrophils % 88.4 %; White Blood Count 24.8 K/mcL (4.3-11.1)
[2021-10-03 04:11] LABS: Basophils # 0.1 K/mcL (0.0-0.2)
[2021-10-03 04:24] LABS: Alanine Aminotransferase 40 Units/L (7-52); Albumin 4.4 g/dL (3.5-5.7); Albumin/Globulin Ratio 1.6 (1.1-2.2); Alkaline Phosphatase 41 Units/L (34-104); Aspartate Amino Transferase 19 Units/L (13-39); BUN/Creatinine Ratio 61 (6-26); Bilirubin,Total 0.4 mg/dL (0.3-1.0); Blood Urea Nitrogen 86 mg/dL (8-23); Calcium 9.8 mg/dL (8.6-10.3); Carbon Dioxide 37 mEq/L (23-29); Chloride 92 mEq/L (98-107); Globulin 2.8 g/dL (2.4-3.5); Glucose 192 mg/dL (70-105); Magnesium 2.5 mg/dL (1.6-2.6); Osmolality,Calculated 315 (280-300); Phosphorous 5.4 mg/dL (2.7-4.5); Potassium 5.5 mEq/L (3.5-5.1); Sodium 137 mEq/L (136-145); Total Protein 7.2 g/dL (6.4-8.9); eGFR For African Americans > 60 (> 60); eGFR For Non-African Americans 51 (> 60)
[2021-10-03 04:25] LABS: Platelet Estimate Normal (Normal)
[2021-10-03] MEDS: Midazolam HCl 50 MG/100 ML IV.SOLN IVC SCH (05:20)
[2021-10-03] MEDS: Amiodarone Premix 360 MG/200 ML BAG IVC SCH ×3 (05:20→17:31)
[2021-10-03] MEDS: MethylPREDNISolone 40 MG/ML VIAL IVP SCH ×2 (05:36→17:40)
[2021-10-03] MEDS: FentaNYL (PF) 2,500 MCG/50 ML IV.SOLN IVC SCH (08:30)
[2021-10-03] MEDS: Folic Acid 1 MG TABLET GTUBE SCH (08:31)
[2021-10-03] MEDS: Cholecalciferol (D-3) 1,000 UNIT (25MCG) TABLET PO SCH (08:31)
[2021-10-03] MEDS: Pantoprazole 40 MG VIAL IVP SCH (08:31)
[2021-10-03] MEDS: Docusate Oral Soln 100 MG/10 ML UDC GTUBE SCH (08:31)
[2021-10-03] MEDS: *HR* Amiodarone 200 MG TABLET PO SCH (08:31)
[2021-10-03] MEDS: Chlorhexidine Rinse 15 ML MOUTHWASH MM SCH (08:31)
[2021-10-03] MEDS: Lactobacillus 1 EACH CAP.SPRINK PO SCH (08:31)
[2021-10-03] MEDS: Magnesium Oxide 400 MG TABLET PO SCH (08:31)
[2021-10-03] MEDS: Thiamine (B-1) 100 MG TABLET GTUBE SCH (08:31)
[2021-10-03] MEDS: Multivitamin Liquid 15 ML UDC GTUBE SCH (08:31)
[2021-10-03] MEDS: Lacri-Lube 3.5 GM TUBE BOTH EYES SCH (08:32)
[2021-10-03 09:15] LABS: BUN/Creatinine Ratio 61 (6-26); Blood Urea Nitrogen 78 mg/dL (8-23); Calcium 10.1 mg/dL (8.6-10.3); Carbon Dioxide 37 mEq/L (23-29); Chloride 93 mEq/L (98-107); Glucose 181 mg/dL (70-105); Osmolality,Calculated 310 (280-300); Potassium 5.5 mEq/L (3.5-5.1); Sodium 136 mEq/L (136-145); eGFR For African Americans > 60 (> 60); eGFR For Non-African Americans 57 (> 60)
[2021-10-03] MEDS ORDERED: Haloperidol Lactate 5 MG/ML VIAL IVP PRN (09:15)
[2021-10-03] MEDS ORDERED: FentaNYL (PF) 2,500 MCG/50 ML IV.SOLN IVC SCH (09:33)
[2021-10-03] MEDS: *HR* Digoxin 0.5 MG/2 ML AMPUL IVP SCH ×2 (10:17→15:54)
[2021-10-03] MEDS ORDERED: Furosemide 40 MG/4 ML VIAL IVP SCH (11:30)
[2021-10-03 16:50] VITALS: TEMP 99.2
[2021-10-03 17:11] VITALS: PULSE 100
[2021-10-03 18:05] VITALS: BP 116/86; O2SAT 96
== END 2021-10-03 20:00 | disposition short-term general hospital (02) | DRG 308 ==
LOC: EMEROOARM 13:00 → 3BNU 13:00 → SUATTDRO 18:23 → 3BNU 19:44 → ICNU 09-19 23:56
PROVIDERS: ADMIT Internal Medicine; ATTEND Internal Medicine